=== PATIENT | male | born 1980 | race Caucasian/White ===

== ENCOUNTER 2016-10-31 18:32 | Inpatient (IN) | payer OTHER ==
[~2016-10-31] VITALS: Ht 185.4 cm; Wt 84.8 kg
[2016-10-31] VITALS (12 sets, daily range): BP systolic 100–118; BP diastolic 46–64; PULSE 118–158; RESP 18–34; O2SAT 93–97
[~2016-10-31 18:32] MED LIST: Vancomycin Inj 1,500 MG in 0.9% Sodium Chloride 500 ML IV ONE
[2016-10-31] MEDS ORDERED: 0.9% Sodium Chloride 1,000 ML IV ONE ×3 (18:44→20:20)
--- NOTE | 2016-10-31 18:47 | ED.REPORT ---
HPI-General Illness Date of Service Oct 31, 2016 ED Provider: Elise Ervin MD Patient is a 36 year old male with a history of IV drug use and COPD who presents to the ED complaining of chest pain onset after using heroin today. Associated symptoms include shortness of breath, palpitations, cough, chills and fever. He denies nausea, vomiting, throat swelling, voice changes or problems with any of his extremities. Patient states that someone else gave him the heroin. The patient reports that he uses IV meth and heroin daily for the past 6 months but has used both for the past year. Nursing Notes Stated Complaint: DRUG USE Chief Complaint: Substance Abuse Nursing Notes Reviewed: Yes Allergies: Uncoded Allergies: C-CHLOR (Allergy, Unknown, 10/31/16) No Active Prescriptions or Reported Meds General Time Seen by MD: 19:37 Chief Complaint Chest pain Hx Obtained From: Patient Arrived By: Walk-in Sudden in Onset?: Yes Onset Occurred: 1 - 4 hours ago Symptom Duration: Since onset Location: : Chest Quality: Heaviness Radiation: : Does not radiate Severity: Current: Moderate Associated with: Reports: Cough, Fever, Shortness of breath, Denies: Nausea, Speech abnormal, Vomiting Recent Healthcare: No recent hospitalization Similar Sx Previous: No Past Medical History Past Medical History Reports: COPD Smoking History Current Every Day Smoker Social History Drug Use: IV drugs, Meth Ambulatory Status Independent Review of Systems Full Review of Systems Constitutional: Reports: Chills, Fever Ears / Nose / Throat: Denies: Throat swelling, Voice change Respiratory: Reports: Non-productive cough, Shortness of breath Cardiovascular: Reports: Chest pain, Palpitations GI: Denies: Nausea, Vomiting Musculoskeletal: Denies: Extremity pain Neurologic: Denies: Numbness, Weakness Complete sys rev & neg: except as marked. Physical Exam Vital Signs Vital Signs Date Time Temp Pulse Resp B/P Pulse Ox O2 Delivery O2 Flow Rate FiO2 10/31/16 20:54 138 24 118/63 95 Room Air 10/31/16 20:25 39 142 26 115/54 95 Room Air 10/31/16 19:46 141 34 97 Room Air 10/31/16 19:43 148 20 113/53 94 Room Air 10/31/16 18:29 39.6 158 24 100/46 93 Room Air Initial VS: Reviewed, Vital signs abnormal General/Constitutional: Awake, Alert Head / Eyes: Atraumatic, Normocephalic, PERRL, EOMI ENT: Atraumatic, Airway patent, Mucous membranes moist Respiratory / Chest: Atraumatic, No respiratory distress Wheezing / Retractions: Positive: Wheeze insp/exp diffuse Cardiovascular: Regular rhythm, Heart sounds NL Heart Rate / Rhythm: Positive: Tachycardia Abdomen: Atraumatic, Soft Tenderness/Guarding/Rebound: Positive: Tender RLQ... Upper Extremities Upper Extremity / MS: Atraumatic, Inspection NL Lower Extremity / Pelvis / MS: Atraumatic, Inspection NL Skin: Atraumatic, Color NL, No rash, Warm, Dry Neurologic: Oriented X3, Speech NL, No motor deficits, No sensory deficits Psychiatric: Affect NL, Mood NL Interpretation & Diagnostics Lab Results Interpretation Result Diagram: 10/31/16185410/31/161854 Test 10/31/16 18:55 White Blood Count 4.2th/mm3 (3.8-10.1) Red Blood Count 4.53mil/mm3 (4.40-5.80) Hemoglobin 12.5g/dL (13.8-17.2) Hematocrit 37.9% (41.0-50.0) Mean Corpuscular Volume 83.7fL (81-100) Mean Corpuscular Hemoglobin 27.6pg (27.0-35.0) Mean Corpuscular Hemoglobin Concent 33.0% (32.0-37.0) Red Cell Distribution Width 13.2% (12.3-15.4) Platelet Count 253bil/L (150-400) Neutrophils (%) (Auto) 93.8% (40-74) Lymphocytes (%) (Auto) 4.3% (14-46) Monocytes (%) (Auto) 0.5% (4-12) Eosinophils (%) (Auto) 0.7% (0-5) Basophils (%) (Auto) 0.2% (0-3) Erythrocyte Sedimentation Rate 22mm/hr (0-15) Prothrombin Time 12.7sec (8.1-12.5) Prothromb Time International Ratio 1.18ratio Sodium Level 138mEq/L (134-144) Potassium Level 3.9mEq/L (3.5-5.2) Chloride Level 103mEq/L (97-108) Carbon Dioxide Level 20mmol/L (18-29) Blood Urea Nitrogen 17mg/dL (6-20) Creatinine 1.09mg/dL (0.76-1.27) Estimat Glomerular Filtration Rate 80mL/min (>59) Glucose Level 131mg/dL (60-99) Calcium Level 8.7mg/dL (8.5-10.1) Phosphorus Level 1.2mg/dL (2.5-4.9) Magnesium Level 1.4mg/dL (1.6-2.6) Total Bilirubin 0.9mg/dL (0.0-1.2) Aspartate Amino Transf (AST/SGOT) 248U/L (0-50) Alanine Aminotransferase (ALT/SGPT) 100U/L (0-44) Alkaline Phosphatase 126U/L (25-150) Troponin T < 0.010ug/L (0.0-0.011) Total Protein 6.7g/dL (6.4-8.4) Albumin 3.1g/dL (3.4-5.0) Lipase 30U/L (13-60) Procalcitonin 25.61ng/mL (0.00-0.08) ECG Interpretation ECG Interpretation: sinus tachycardia, rate 151 nonspecific T abnormalities, inferior leads Time: 18:42 Interpreted by: ED physician X-Ray Chest Interpretation Chest Xray Interpretation: IMPRESSION: No acute cardiopulmonary findings. Dictated by: Sophia Rutherford M.D. on 10/31/2016 at 19:12 Approved by: Sophia Rutherford M.D. on 10/31/2016 at 19:13 View: Portable, 1 view Interpretation / Wet Read by: Interpret - Radiologist Re-Eval/Medical Decision Med Decision/Clinical Course The patient presents with high fever and tachycardia after injection of drugs, he is an IV drug user. He also complained of having some chest tightness and has a history of COPD and asthma. He is not having any other obvious sources of infection but given his history of IV drug abuse his at risk for endocarditis and bacteremia with sepsis. He was given vancomycin and ceftriaxone. His heart rate did slightly improve on the emergency department. Patient is also given a dose of Ativan due to his history of methamphetamine use it was felt his tachycardia may be related to amphetamine. Time of Eval: 20:18 Re-Evaluation/Progress Note: Discussed plan for admit. Patient understands and agrees to plan. All questions were addressed. Consultation : Referral / Consult Name: David Small MD Consulted With: Hospitalist Call Returned at: 20:35 Usps Letter Carrier: Agrees with eval, Agrees with plan, Accepts admit Counseled Regarding: Diagnosis, Lab results, Need for admission Discharge & Departure Primary Impression: SIRS (systemic inflammatory response syndrome) Additional Impression: Heroin use Disposition: ADMITTED TO HOSPITAL Discharge Condition All VS Reviewed: Yes Condition: Stable Scribe Attestation Portions of this note were transcribed by Lizzie Rivera. I, Dr. Ervin personally performed the history, physical exam and medical decision-making; I reviewed and confirmed the accuracy of the information in the transcribed note. Signed by: Bev Woo, 10/31/16 and 1944 Elise Ervin MD Oct 31, 2016 18:47 Irina Rivera Oct 31, 2016 19:44 Urine Nitrite Negative (NEGATIVE) Urine Bilirubin Negative (NEGATIVE) Urine Urobilinogen Normalmg/dL (NORMAL) Urine Leukocyte Esterase Negative (NEGATIVE) Urine RBC 0-2/hpf (0-2) Urine WBC 0-5/hpf (0-5) Urine Epithelial Cells Few/hpf (NONE-MOD) Urine Crystals None seen (NONE SEEN) Urine Bacteria Few/hpf (NONE-FEW) Urine Hyaline Casts None/lpf (NONE) Urine Granular Casts None seen (NONE SEEN) Urine Waxy Casts None seen (NONE SEEN) Urine Red Blood Cell Casts None seen (NONE SEEN) Urine White Blood Cell Casts None seen (NONE SEEN) Urine Mucus None seen (None Seen) Urine Trichomonas None seen (NONE SEEN) Urine Yeast None (NONE SEEN) Urinalysis Comment None Urine Culture Reflexed Not indicated ECG Interpretation ECG Interpretation: sinus tachycardia, rate 151 nonspecific T abnormalities, inferior leads Time: 18:42 Interpreted by: ED physician X-Ray Chest Interpretation Chest Xray Interpretation: IMPRESSION: No acute cardiopulmonary findings. Dictated by: Sophia Rutherford M.D. on 10/31/2016 at 19:12 Approved by: Sophia Rutherford M.D. on 10/31/2016 at 19:13 View: Portable, 1 view Interpretation / Wet Read by: Interpret - Radiologist Re-Eval/Medical Decision Time of Eval: 20:18 Re-Evaluation/Progress Note: Discussed plan for admit. Patient understands and agrees to plan. All questions were addressed. Consultation : Referral / Consult Name: David Small MD Consulted With: Hospitalist Call Returned at: 20:35 Usps Letter Carrier: Agrees with eval, Agrees with plan, Accepts admit Counseled Regarding: Diagnosis, Lab results, Need for admission Discharge & Departure Primary Impression: SIRS (systemic inflammatory response syndrome) Additional Impression: Heroin use Disposition: ADMITTED TO HOSPITAL Discharge Condition All VS Reviewed: Yes Condition: Stable Scribe Attestation Portions of this note were transcribed by Lizzie Rivera. I, Dr. Ervin personally performed the history, physical exam and medical decision-making; I reviewed and confirmed the accuracy of the information in the transcribed note. Signed by: Bev Woo, 10/31/16 and 1946 Elise Ervin MD Oct 31, 2016 18:47 Irina Rivera Oct 31, 2016 19:44 Irina Rivera Oct 31, 2016 19:44
[2016-10-31 19:11] LABS: BASOPHILS % (AUTO) 0.2 % (0-3); EOSINOPHILS % (AUTO) 0.7 % (0-5); MONOCYTES % (AUTO) 0.5 % (4-12); Mean Corpuscular Hemoglobin 27.6 pg (27.0-35.0); Mean Corpuscular Volume 83.7 fL (81-100); NEUTROPHILS % (AUTO) 93.8 % (40-74); Platelet Count 253 bil/L (150-400)
--- NOTE | 2016-10-31 19:14 | DRSVH ---
PROCEDURE: X-RAY CHEST ONE VIEW, PORTABLE ([id number]) INDICATIONS: tachycardia TECHNIQUE: One view of the chest was acquired. COMPARISON: None. FINDINGS: Surgical changes and devices: None. Lungs and pleura: No pleural effusions or pneumothorax. Lungs are clear. Mediastinum: Mediastinal contours appear normal. Heart size is normal. Bones and chest wall: No suspicious bony lesions. Overlying soft tissues appear unremarkable. IMPRESSION: No acute cardiopulmonary findings. Dictated by: Sophia Rutherford M.D. on 10/31/2016 at 19:12 Approved by: Sophia Rutherford M.D. on 10/31/2016 at 19:13
[2016-10-31 19:24] LABS: ERYTHROCYTE SEDIMENTATION RATE 22 mm/hr (0-15)
[2016-10-31 19:28] LABS: INR 1.18 ratio
[2016-10-31 19:38] LABS: TROPONIN T < 0.010 ug/L (0.0-0.011)
[2016-10-31] MEDS ORDERED: Albuterol-Ipratropium 3 mL Inhalation Solution NEB ONE (19:40)
[2016-10-31] MEDS ORDERED: Vancomycin Dose per Pharmacist XX ONE ×2 (19:45→21:30)
[2016-10-31] MEDS ORDERED: cefTRIAXone Inj 2,000 MG in Dextrose 5% Minibag Plus 50 ML IV ONE (19:45)
[2016-10-31] MEDS ORDERED: Vancomycin Inj 1,750 MG in 0.9% Sodium Chloride 500 ML IV ONE (19:55)
[2016-10-31 19:58] LABS: Magnesium 1.4 mg/dL (1.6-2.6)
[2016-10-31 19:58] LABS: APPEARANCE,URINE CLEAR (CLEAR,HAZY); COLOR,URINE YELLOW (YELLOW); OCCULT BLOOD,URINE NEGATIVE (NEGATIVE); UROBILINOGEN,URINE NORMAL (NORMAL)
[2016-10-31] MEDS ORDERED: Magnesium Sulf 2 Gm/50mL Water 2 GM in IV Premix 1 EACH IV ONE (20:15)
[2016-10-31] MEDS ORDERED: D5 0.45% NaCl + KCl 20 mEq/L 1,000 ML IV SCH (21:15)
[2016-10-31] MEDS ORDERED: Albuterol 2.5 mg/3 mL Inhalation Solution NEB PRN (21:15)
[2016-10-31] MEDS ORDERED: Ketorolac 15 mg/mL Inj IVPUSH ONE (21:15)
[2016-10-31] MEDS ORDERED: Alum-Mag Hydrox-Simeth 30 mL Suspension PO PRN ×2 (21:15→21:30)
[2016-10-31] MEDS ORDERED: Ondansetron 2 mg/mL 2 mL Inj IVPUSH PRN ×2 (21:15→21:30)
[2016-10-31] MEDS ORDERED: Polyethylene Glycol (PEG) 17 Gm Powder PO PRN (21:30)
--- NOTE | 2016-10-31 21:32 | PCM.HPMED ---
Subjective Date of Service Oct 31, 2016 Primary Provider: Admitting Physician: David Small MD Primary Care Physician: Nopcp Attending Physician: David Small MD Admit Status: PCC Telemetry Chief Complaint: Shortness of breath History of Present Illness: Jose Alejandro Richards is a 36-year-old man with polysubstance abuse who presents to the ED complaining of shortness of breath that started after he injected methamphetamine and heroin into his right arm this morning. Patient notes that he has felt short of breath and has had a productive cough for the past 6 months that has progressively worsened. The reason for his presentation today is that his shortness of breath is accompanied with sensation of his heart racing along with fever and sweats. Patient thought this may be due to withdrawing and took an additional hit of heroin just prior to arrival at approximately 1600. Patient has been using heroin and methamphetamine for the past year. He states he only injects in his arms bilaterally. He has not noticed any swelling or erythema surrounding the injection sites. He states he does not share needles but he does lick his needles. He denies any other rash or skin findings. Prior to this he struggled with alcohol abuse but has been sober for approximately one year. He also uses marijuana through inhalation route occasionally. He denies any sick contacts. He denies TB, hepatitis C, or HIV and states he was tested when he was at a rehabilitation center over a year ago. He was tested more recently for TB when he was incarcerated approximately 6 months ago. He denies any nausea, vomiting, diarrhea, abdominal pain, constipation, headache, visual changes, dizziness, or lightheadedness. On presentation to the ED vitals were temperature 39.6, pulse 158, respiratory rate 24 saturating 93% on room air, blood pressure 100/46. Initial labs revealed WBC of 4.2 with 93.8% neutrophils, ESR 22, lactic acid 2.8, AST 248, ALT 100, pro-calcitonin 25.61, and negative troponin. In the emergency department patient received vancomycin and ceftriaxone for suspected bacteremia. Review of Systems: Comprehensive review of systems was conducted with the patient and found to be negative except as noted above in HPI. Allergies Uncoded Allergies: C-CHLOR (Allergy, Unknown, 10/31/16) Home Medications None PMH Rheumatoid arthritis previously on Remicade but no current treatment Surgical History None Family History Father - skin cancer Mother - diabetes mellitus, stroke Sister - ovarian cancer Social History Hx Alcohol Use: Yes (former alcoholic sober for approximately one year) Hx Substance Use: Yes (heroin, methamphetamine, marijuana) Hx Tobacco Use: Yes Smoking Status: Current Every Day Smoker Years of Smokin Living Arrangement: with Friends/Roommate Exam Vital Signs Vital Sign - Last Date Time Temp Pulse Resp B/P Pulse Ox O2 Delivery O2 Flow Rate FiO2 10/31/16 21:19 130 26 114/64 96 Room Air 10/31/16 20:25 39 Exam General: No acute distress, well-developed, well-nourished, appropriately interactive. Diffuse sunburn on exposed skin area. HEENT: Normocephalic, atraumatic. External ears without defect. Pupils equal, round, and reactive to light and accommodation. Anicteric sclerae. Oropharynx free of erythema and cobble stoning with moist mucosa. Dentition in fairly good repair. Neck: Supple with full range of motion. No jugular venous distension. No bruits. No lymphadenopathy or thyromegaly. Cardiovascular: Tachycardic but regular rhythm with no murmurs, rubs, or gallops appreciated Pulmonary: Diffuse wheezes throughout lung shelley. Normal respiratory effort with no use of accessory muscles. Abdomen: Bowel tones present. Soft, nontender, nondistended. No hepatosplenomegaly or masses appreciated. Extremities: No clubbing, cyanosis, edema, or lymphadenopathy appreciated. Faint track alba on bilateral arms. Skin: Normal temperature, turgor, and texture; no rash, ulcers, or subcutaneous nodules appreciated. Neurological: Cranial nerves grossly intact. Normal muscle strength, tone, and bulk. Reflexes, coordination, and sensory function within normal limits. No known gait impairment. Psychiatric: Normal mood and affect. Alert and oriented to person, place, and time. Lab and Diagnostics Result Diagram: 10/31/16185410/31/161854 Microbiology Blood cultures 4 drawn and sent. X-Rays, CTs and MRIs X-RAY CHEST ONE VIEW, PORTABLE ([id number]) IMPRESSION: No acute cardiopulmonary findings. Dictated by: Sophia Rutherford M.D. on 10/31/2016 at 19:12 Approved by: Sophia Rutherford M.D. on 10/31/2016 at 19:13 Assessment & Plan Jose Alejandro Richards is a 36-year-old man with polysubstance abuse who presents to the ED complaining of shortness of breath that started after he injected methamphetamine and heroin into his right arm this morning. Admitted for sepsis thought to be secondary to bacteremia. Sepsis, present on admission, active. Diagnostic criteria include temperature 39.6, respiratory rate 24, pulse 158, lactate 2.8. Blood is suspected source of infection although not proven at this time. - Lactate has trended down with IV fluids to 1.2. - IV fluids at 125 ml/hr. - Blood cultures 4 drawn and sent. - Empiric antibiotics include vancomycin and ceftriaxone given in the ED. Ceftriaxone switched to Zosyn. - MRSA screen ordered. - Pro calcitonin elevated at 25.61. Polysubstance abuse, present on admission, active. Last heroin injection at approximately 1600 on 10/31/16. Last methamphetamine injection morning of 10/31/16. - No current signs of withdrawal we will continue to monitor. - Patient would like to be started on Suboxone once he begins withdrawing. - Monitor on telemetry. - Due to IV drug use and suspicion of bacteremia and/or endocarditis we will order an echocardiogram for the morning. Elevated aminotransferases, present on admission, active. No prior diagnosis of hepatitis or HIV. Patient denies recent alcohol use but was an alcoholic in the past. - AST 248 and ALT 100 on admission. - Hepatitis panel and HIV ordered. Tachycardia, present on admission, active. Etiology likely secondary to sepsis. - IV fluids given as above. - EKG interpretation was sinus tachycardia with a rate of 151 and nonspecific T wave abnormalities. - Repeat EKG in the morning or sooner if patient develops chest pain. - Monitor on telemetry. - Echocardiogram ordered for morning. - Consider further medical management if treatment of sepsis does not improve rate. Electrolyte derangements, present on admission, active. - Magnesium 1.4 and phosphorus 1.2. - Potassium phosphate and magnesium given. - Repeat magnesium and phosphorus levels in the morning. Tobacco use disorder, presents on admission, active. - Nicotine patch 21 mg daily. PRN Medications - Acetaminophen as needed for mild pain/fever/headache - Bowel regimen as needed - Antiemetic as needed Patient is admitted under inpatient status with expected length of stay greater than 2 midnights due to severity of presenting symptoms, risk of adverse event, and complexity of treatment plan. Pain Evaluation: Adequate Pain Control GI Prophylaxis: Not indicated VTE Prophylaxis: Sub-Q Heparin (Unfractionated), SCDs Resuscitation Status: CPR: Attempt Resuscitation KAREN MARR DO Oct 31, 2016 21:32
[2016-10-31] MEDS ORDERED: Piperacillin-Tazo 3.375 Gm Inj 3.375 GM in Dextrose 5% Minibag Plus 50 ML IV ONE (21:45)
[2016-10-31 21:53] LABS: Phosphorus 1.2 mg/dL (2.5-4.9)
[2016-10-31 22:14] LABS: APPEARANCE,URINE CLEAR (CLEAR,HAZY); COLOR,URINE YELLOW (YELLOW)
[2016-10-31 22:15] LABS: OCCULT BLOOD,URINE NEGATIVE (NEGATIVE); UROBILINOGEN,URINE NORMAL (NORMAL)
--- NOTE | 2016-10-31 22:15 | NUR ---
Admission: Pt arrived to room 2006 at 2127 in stable condition. Pt placed on telemetry and noted to be in ST in the 130s. Initial assessment completed as charted. MD at the bedside and reviewed POC; starting IV fluids and antibiotics. Will cont. to closely monitor. Bed in the low position and locked. Call light within reach. Pt drowsy, but answering appropriately and following commands.
--- NOTE | 2016-10-31 22:17 | PCM.PHAPRO ---
Progress Date of Service: Oct 31, 2016 Chest pain Vancomycin Management per Pharmacy: Indication: Chest pain/fever/sepsis in patient with history of IV drug use ( heroine and methamphetamine) - rule out endocarditis/septic emboli Goal Vancomycin trough: 15-20 mcg/dL Age: 36 yo Weight: 90 kg Labs: WBC: 4.2 SrCr: 1.09 mg/dL Procalcitonin: 25.61 ESR: 72 Lactic Acid: 2.8 AST/ALT: Elevated 2x above baseline Vitals: HR: 130-150s BPM (dramatically elevated) Temp: 39.6 BP: Maintaining BP currently RR: 20-34 (elevated) Nephrotoxic Risk Factors: Zosyn IV Recommendation: Load: Vancomycin 1750 mg IV x 1 loading dose (20 mg/kg) Maintenance: Will give additional 1500 mg IV vancomycin 6 hrs post initial load , then start maintenance dose at 1250 mg IV Q8h again 6 hrs later (Pt will need higher doses because SIRS increases volume of distribution and history of meth along w/ SIRS response is resulting in elevated heart rate and enhanced clearance of vancomycin. Trough: Draw on 11/02/16 @ 0730 Will need to monitor renal function and vitals carefully and adjust vancomycin dose accordingly. If SrCr trends up or pt becomes hypotensive (resulting in hypoperfusion to kidney) will need to decrease dose and draw trough sooner. Thank You, Beatriz Garrett, Pharm D. Beatriz Garrett Oct 31, 2016 22:17
[2016-10-31] MEDS ORDERED: Potassium Phos (mMol) Inj 15 MMOL in Dextrose 5% 250 ML IV ONE (22:25)
[2016-10-31] MEDS: 0.9% Sodium Chloride 1,000 ML IV SCH (22:27)
[2016-10-31] MEDS: Sodium Chloride LOK Flush 10 mL Syringe IVFLUSH SCH (23:34)
[2016-10-31] MEDS: Vancomycin Dose per Pharmacist XX SCH (23:34)
[2016-11-01] VITALS (11 sets, daily range): BP systolic 103–134; BP diastolic 55–79; PULSE 93–110; RESP 18–20; O2SAT 96–100
[2016-11-01] MEDS: Heparin 5,000 Unit/mL Inj SUBQ SCH ×3 (00:37→17:20)
[2016-11-01] MEDS ORDERED: Piperacillin-Tazo 3.375 Gm Inj 3.375 GM in Dextrose 5% Minibag Plus 50 ML IV SCH ×2 (02:00→06:30)
[2016-11-01] MEDS ORDERED: Albuterol-Ipratropium 3 mL Inhalation Solution NEB SCH (02:30)
[2016-11-01 02:52] LABS: BASOPHILS % (AUTO) 0.1 % (0-3); EOSINOPHILS % (AUTO) 0.1 % (0-5); Mean Corpuscular Hemoglobin 27.3 pg (27.0-35.0); Mean Corpuscular Volume 83.7 fL (81-100); NEUTROPHILS % (AUTO) 89.4 % (40-74); Platelet Count 231 bil/L (150-400)
[2016-11-01 03:21] LABS: Magnesium 1.9 mg/dL (1.6-2.6)
[2016-11-01] MEDS: 0.9% Sodium Chloride 1,000 ML IV SCH ×3 (07:52→21:45)
[2016-11-01] MEDS: Vancomycin Inj 1,250 MG in 0.9% Sodium Chloride 250 ML IV SCH ×2 (07:53→17:18)
[2016-11-01] MEDS: Sodium Chloride LOK Flush 10 mL Syringe IVFLUSH SCH ×2 (07:58→17:22)
[2016-11-01] MEDS: Vancomycin Dose per Pharmacist XX SCH (08:00)
[2016-11-01] MEDS: Albuterol-Ipratropium 3 mL Inhalation Solution NEB PRN ×2 (09:44→15:33)
--- NOTE | 2016-11-01 11:02 | CONS ---
[address] [address] CONSULTATION REPORT PATIENT: MICHELE WONG : 1980 MR#: [id number] ADMIT: 10/31/2016 JOB ID: [id number] DATE OF SERVICE: 11/01/2016 INFECTIOUS DISEASE CONSULTATION: I thank Dr. Hewitt for this timely consult. REASON FOR CONSULTATION: Sepsis in an IV drug user. HISTORY OF PRESENT ILLNESS: The patient is a 36-year-old gentleman with a past history of rheumatoid arthritis as well as alcoholism in remission and IV drug use which is not in remission. He is also a cigarette smoker and has a possible history of asthma. He uses very nonsterile technique when he injects drugs and often licks the needles and uses old cotton swabs as part of his "works." He injects both meth and heroin. He is also, as mentioned, a cigarette smoker. He was in his usual state of compensated health until yesterday when he developed the abrupt onset of profound shortness of breath with almost complete inability to draw a full breath as well as a rapid pulse which he and his girlfriend appreciated and fever and sweats without chills. All these symptoms, but especially the respiratory symptoms, led him to the emergency department where he was admitted last night. It was discovered last night in the emergency department as part of his initial evaluation that he had an elevated CRP as well as a tremendously increased procalcitonin consistent with sepsis. His initial white count was only 5, but it has since jumped to 16. He was admitted for suspicion of a pulmonary infection and/or sepsis with possible endocarditis or bacteremia due to nonsterile IV injections. Overnight, the patient reports there has been some improvement in his respiratory status and he can now move more air and his chest feels less tight. He does not have any significant cough and certainly no productive cough or pleuritic chest pain. He now hears some wheezing, which he states he has had in the past but did not have yesterday because he could not move any air at all. His fevers and chills are better overnight. He continues to have quite a significant headache, which has been part of this illness throughout but no sore throat. As mentioned no productive cough and no longer any chest tightness or pain. He does have some mild right upper quadrant tenderness and fullness which seems like it may be chronic though it is difficult to tell in terms of his history. Other striking part of his history was that he had trouble voiding, and in fact at one point, was unable to make any urine whatsoever but that seems to have resolved overnight with hydration and he has no prior history of urinary tract infections. PAST MEDICAL HISTORY: 1. Rheumatoid arthritis which he has not been treated for for about a decade. 2. History of IV drug use. 3. History of alcoholism in remission x1 year. 4. History of cigarette smoking. 5. History of prior incarcerations. SOCIAL HISTORY: As noted the patient is an alcoholic and has been in remission for a year. He is not in remission with respect to his IV heroin and amphetamine use, using non sterile technique. He is also a cigarette smoker. He lives in a variety of locations with his significant other, currently between [facility] and [facility]. His last admission to the hospital he says was about five or six years ago at one of the hospitals in [place] for what was termed a pneumonia. FAMILY HISTORY: No history of TB in first or second-degree relatives. The patient has been testing himself for TB in the past and it has been negative. He does have a family history of diabetes not surprisingly. REVIEW OF SYSTEMS: The patient has quite a severe headache. No new visual complaints. No sore throat. No stiff neck. He did have chest tightness and trouble breathing yesterday. Today he has wheezing but less tightness. No significant cough. No pleuritic chest pain. No palpitations though yesterday he had a very rapid heart rate which has subsided overnight. Some mild right upper quadrant fullness or tenderness perhaps without nausea or vomiting. No diarrhea. He had painful urination yesterday and eventually no urine output but that has resolved, suggesting it was all due to severe dehydration. No particular pain in any single joint or muscle though he did have some diffuse malaise yesterday. No skin rash has been noted. He does not have any pain or infection that is apparent to him at least at the site of any recent injection. Remainder of the review of systems negative. PHYSICAL EXAMINATION: Reveals an afebrile gentleman, 36.3 temperature, pulse 100, respiratory rate 20, blood pressure 103/55, saturating 100% on room air. He is in no obvious distress as he lies in his hospital bed. He is awake, alert and oriented. No head trauma. Eyes without conjunctivitis or scleral icterus. Nose appears normal. Oral cavity without thrush or hairy leukoplakia. No pharyngitis is seen. His neck is completely supple without JVD or adenopathy. Lungs with scattered wheezes bilaterally, right more than left. No pleural rub is heard and no real rales are heard either. Cardiac tones: Tachycardic but without murmur. There was a noisy room so a bit difficult to appreciate subtle murmurs but no gross murmur or rub was heard. Abdomen with a liver that extends 3 cm below the right costal margin and is quite tender especially along the mid portion. The left upper quadrant is quiet. There is no splenomegaly. There are no other notable abnormalities. The lower abdomen is benign. The patient does not have suprapubic tenderness. There is no evidence for synovitis anywhere and no significant peripheral edema. No cellulitis is seen. No abscess at injection sites as noted. His hands do not have synovitis or changes classically consistent with chronic rheumatoid arthritis. No palmar erythema seen. No spider angiomata are seen. Neurologically he is intact. The labs include a white count yesterday 4200 with left shift. This morning 15.5 with left shift. Sed rate only 22. Creatinine 1.13. LFTs: AST 183, ALT 123. CRP is 5.8, albumin 2.8. Procalcitonin an impressive 124, yesterday it was 26. Serologic studies include pending hepatitis panel including hep C and also an HIV is pending. Urinalysis without white cells. IMAGING: Includes a chest x-ray, which we reviewed and showed no infiltrate. IMPRESSION: This is a 36-year-old IV drug user with a history of rheumatoid arthritis in remission as well as alcoholism in remission. He was admitted with shortness of breath which is likely on the basis of asthma given his wheezing and clear chest radiograph. The bigger issue here is his white count which has quadrupled overnight and his procalcitonin which has reached almost astronomical levels. This strongly suggests a systemic bacterial infection and given the fact he does not have pneumonia strongly suggest bacteremia or endocarditis. The other major concern I have here though is his right upper quadrant fullness and tenderness. This could represent conceivably a liver abscess or acute cholecystitis and I think those possibilities need to be evaluated. He has grossly elevated LFTs which I suspect are chronic and reflect underlying hepatitis B or hepatitis C or both. It is also important that we get some baseline data on this patient including a HIV which has been ordered. RECOMMENDATIONS: 1. I discussed this case this morning with the house staff. Given the concerns that he has endocarditis, he needs three sets of blood cultures, not two, and I think an additional third set of blood cultures has been drawn. 2. Even though a MRSA screen of the nares is negative initially, I think we should go ahead and persists with vanc and perhaps ceftriaxone while we await additional information. 3. Right upper quadrant ultrasound should be done to evaluate his liver parenchyma as well as his gallbladder. 4. Will continue to follow this complex patient with you. Should he have positive blood cultures, he will require a transthoracic echo and depending on what the organism is perhaps a transesophageal. My initial guess is that the patient does not have endocarditis because of the sudden onset of these symptoms and I suspect more likely had a transient bacteremia due to terrifically contaminated intravenous injection secondary to needle licking and the use of nonsterile reused cotton balls to prepare the needles for injection. Thank you very much for this scintillating consult. MATI
--- NOTE | 2016-11-01 12:40 | DRSVH ---
[facility] [address] [place] [address] Echocardiogram Report Name: MICHELE WONG Study Date: 11/01/2016 Height: 72 in Hospital Exam Location: [facility] Weight: 199 lb Gender: Male BSA: 2.1 m2 : 1980 Age: 36 yrs BP: 104/66 mmHg Reason For Study: Concern for Endocarditis Performed By: Cheryl Pedro Referring Physician: KAREN MARR Interpretation Summary The study quality was technically difficult. The left ventricle is normal in size. The ejection fraction is estimated to be 60-65%.There appears to be mild hypokinesis of distal posterolateral wall. Paradoxical septal motion noted. The right ventricle is mildly dilated. The right ventricular systolic function is normal. The right ventricular systolic pressure is estimated at 40 mmHg assuming a right atrial pressure of 15 mm Hg. The IVC is dilated (diameter is greater than 2.1 cm) and it collapses less than 50% with a sniff. This suggests a high right atrial pressure of 15 mm Hg. No obvious vegetation seen, however if clinical suspicion for endocarditis is high, consider TAMMIE. Procedure: A two-dimensional transthoracic echocardiogram with color flow and Doppler was performed. The study quality was technically difficult. There is no prior echocardiogram noted for this patient. A contrast injection of Definity was performed to improve assessment of LV function. The patient was in sinus tachycardia with heart rates between 93-108 bpm during the exam. Left Ventricle: The left ventricle is normal in size. There is normal left ventricular wall thickness. The ejection fraction is estimated to be 60-65%. There appears to be mild hypokinesis of distal posterolateral wall. Paradoxical septal motion noted. Diastolic function could not be accurately assessed due to tachycardia. Right Ventricle: The right ventricle is mildly dilated. The right ventricular systolic function is normal. Atria: The left atrial size is normal. Right atrial size is normal. The interatrial septum is intact with no evidence for an atrial septal defect. Mitral Valve: The mitral valve leaflets appear mildly thickened, but open well. The mitral valve leaflets are slightly calcified. There is trace mitral regurgitation. Aortic Valve: The aortic valve is not well visualized. There is discrete nodular thickening of the right coronary cusp. There is no aortic valve stenosis. No aortic regurgitation is present. Tricuspid Valve: The tricuspid valve is normal in structure and function. There is trace tricuspid regurgitation. The right ventricular systolic pressure is estimated at 40 mmHg assuming a right atrial pressure of 15 mm Hg. Pulmonic Valve: The pulmonic valve is not well visualized. There is trace pulmonic regurgitation. Great Vessels: The aortic root is normal size. The ascending aorta could not be visualized. The IVC is dilated (diameter is greater than 2.1 cm) and it collapses less than 50% with a sniff. This suggests a high right atrial pressure of 15 mm Hg. Pericardium/ Pleura There is no pericardial effusion. There is an anterior echo-free space consistent with a fat pad. There is no pleural effusion. MMode/2D Measurements & Calculations LVIDd: 5.6 cm RA long axis LVOT diam LVIDs: 4.0 cm LA A2 area: 13.5 cm : 2.4 cm FS: 29.3 % LA A4 area: 18.6 cm RA area IVSd: 0.89 cm LA length (vol): 4.5 cm LVPWd: 0.98 cm LA vol: 47.6 ml : 12.4 cm RA vol: 34.4 ml LA vol index: 22.4 ml/m RA IVC diam: 2.3 cm : 16.2 mm2 LV mcintyre. diameter/BSA LV sys. diameter/BSA TAPSE: 3.0 cm (cm/m^2): 2.6 (cm/m^2): 1.9 Doppler Measurements & Calculations Ao V2 max Med Peak E' Juan TR max juan Ao V2 mean : 83.3 cm/sec : 293.2 cm/sec : 60.5 cm/sec Ao max PG Lat Peak E' Juan TR max P.4 mmHg Ao V2 VTI : 2.8 mmHg : 13.0 cm/sec PA V2 max: 68.7 cm/sec Ao mean PG PA mean P.0 mmHg KRISH(V,D) : 4.8 cm2 LVOT Max Juan : 88.9 cm/sec KRISH(I,D): 4.6 cm sev ratio LV V1 max PG PA V2 mean KRISH indexed to BSA : 48.2 cm/sec (cm^2/m^2): 2.1 LV V1 VTI PA pr(Accel) : 13.5 cm : 45.8 mmHg Reading Physician:CHAYA
--- NOTE | 2016-11-01 13:44 | DRSVH ---
PROCEDURE: US ABDOMEN, LIMITED ([id number]) INDICATIONS: Tender swollen liver TECHNIQUE: Real-time focused scanning was performed of the abdomen, with image documentation. COMPARISON: None. FINDINGS: Exam is limited to evaluation of the liver. Patient is not fasting therefore gallbladder no nvisualized. The liver measures 19.3 cm, mildly enlarged. Hepatic echotexture is mildly hyperechoic. No focal mass lesions seen. No free fluid. IMPRESSION: Borderline hepatomegaly and steatosis. Correlation with liver function test suggested. Dictated by: Leandro Tsang M.D. on 11/01/2016 at 13:40 Approved by: Leandro Tsang M.D. on 11/01/2016 at 13:42
--- NOTE | 2016-11-01 14:58 | PCM.PNMED ---
Subjective Date of Service Nov 01, 2016 Subjective Patient was admitted for suspicion of a pulmonary infection and/or sepsis with possible endocarditis or bacteremia due to nonsterile IV injections. No acute event overnight. Today, patient reports some improvement of his breathing and chest tightness. He still has a persistent cough, but it is not productive. He admits to headache and anxiety, which he attributes to possible withdrawal symptoms from the Heroins. He asks if we can give him Suboxone to help with his symptoms. Patient also admits to RUQ and epigastric pain, which he though would be due to the persistent cough. He denies any significant infection in the past. He admits to frequently lick his needles before injection. Exam Vital Signs Vital Sign - Last Date Time Temp Pulse Resp B/P Pulse Ox O2 Delivery O2 Flow Rate FiO2 11/01/16 10:24 101 11/01/16 09:44 18 97 Room Air 11/01/16 08:34 36.3 103/55 Intake and Output 10/31/16 10/31/16 11/01/16 Cumulative From/Thru 15:00 23:00 07:00 10/31/16 18:29 - 11/01/16 06:03 Intake Total 2518 ml 1523 ml 4041 ml Output Total 400 ml 400 ml Balance 2518 ml 1123 ml 3641 ml Intake Oral 0 ml 0 ml IV Total 2518 ml 1523 ml 4041 ml Output Urine Total 400 ml 400 ml # Bowel Movements 0 0 Exam General: Well-developed, well-nourished, appropriately interactive. Diffuse sunburn on exposed skin area. HEENT: Normocephalic, atraumatic. External ears without defect. Pupils equal, round, and reactive to light and accommodation. Anicteric sclerae. Oropharynx free of erythema and cobble stoning with moist mucosa. Neck: Supple with full range of motion. No jugular venous distension. No bruits. No lymphadenopathy or thyromegaly. Cardiovascular: Tachycardic but regular rhythm with no murmurs, rubs, or gallops appreciated Pulmonary: Mild rales and diffuse wheezes throughout lung shelley. Normal respiratory effort with no use of accessory muscles. Dry cough noted. Abdomen: Bowel tones present. Soft, nondistended. Moderate tenderness to palpation in RUQ. Hepatomegaly noted. No splenomegaly. Extremities: No clubbing, cyanosis, edema, or lymphadenopathy appreciated. Faint track alba on bilateral arms. Skin: Normal temperature, turgor, and texture; no rash, ulcers, or subcutaneous nodules appreciated. Neurological: Cranial nerves grossly intact. Normal muscle strength, tone, and bulk. Reflexes, coordination, and sensory function within normal limits. No known gait impairment. Psychiatric: Appears anxious. Alert and oriented to person, place, and time. IVs and Medications Medications Reviewed: Medications were reviewed in detail Lab and Diagnostics Result Diagram: 11/01/1623911/01/16239 Microbiology Blood cultures 4 drawn and sent. X-Rays, CTs and MRIs PROCEDURE: US ABDOMEN, LIMITED IMPRESSION: Borderline hepatomegaly and steatosis. Correlation with liver function test suggested. Dictated by: Leandro Tsang M.D. on 11/01/2016 at 13:40 X-RAY CHEST ONE VIEW, PORTABLE ([id number]) IMPRESSION: No acute cardiopulmonary findings. Dictated by: Sophia Rutherford M.D. on 10/31/2016 at 19:12 Approved by: Sophia Rutherford M.D. on 10/31/2016 at 19:13 Cardiac Echo Impressions Interpretation Summary The study quality was technically difficult. The left ventricle is normal in size. The ejection fraction is estimated to be 60-65%.There appears to be mild hypokinesis of distal posterolateral wall. Paradoxical septal motion noted. The right ventricle is mildly dilated. The right ventricular systolic function is normal. The right ventricular systolic pressure is estimated at 40 mmHg assuming a right atrial pressure of 15 mm Hg. The IVC is dilated (diameter is greater than 2.1 cm) and it collapses less than 50% with a sniff. This suggests a high right atrial pressure of 15 mm Hg. No obvious vegetation seen, however if clinical suspicion for endocarditis is high, consider TAMMIE. Assessment & Plan Jose Alejandro Richards is a 36-year-old man with polysubstance abuse who presents to the ED complaining of shortness of breath that started after he injected methamphetamine and heroin into his right arm this morning. Admitted for sepsis thought to be secondary to bacteremia. Sepsis, present on admission, active. Diagnostic criteria include temperature 39.6, respiratory rate 24, pulse 158, lactate 2.8. Source of infection is suspected due to transient bacteremia given the sudden onset of symptoms, but endocarditis is also a possibility. - Patient admits to needle licking the the use of nonsterile reused cotton balls to prepare the needles for injection. No needle sharing. - Lactate has trended down with IV fluids to 1.2 then trend up. Will continue trending lactic acid Q6H. - Pro calcitonin markedly elevated at 124. - Urine and CXR negative for infection. - MRSA screen negative. - IV fluids at 125 ml/hr. - 2 sets of Blood cultures was drawn last night. Addition set drawn today per Dr. Portillo's recommendation. - Empiric antibiotics include vancomycin and ceftriaxone given in the ED. Will continue with Vanco and Cefepime per ID. Appreciate Dr. Portillo's input. - Echo showed no obvious vegetation seen. However, given strong clinical suspicion for endocarditis, will do Echo tomorrow. Case discussed with Dr. Vega who kindly agreed to see the patient. - NPO after midnight. Polysubstance abuse, present on admission, active. Last heroin injection at approximately 1600 on 10/31/16. Last methamphetamine injection morning of 10/31/16. - No other current signs of withdrawal although patient appears anxious. - Patient would like to be started on Suboxone once he begins withdrawing. However, patient states that he will go back to the drugs once he gets out of the hospital and therefore is not a candidate for Suboxone. - Will follow clinically and add Ativan as needed for agitation. - Monitor on telemetry. Elevated aminotransferases, present on admission, active. No prior diagnosis of hepatitis or HIV. Patient denies recent alcohol use but was an alcoholic in the past. In remission for 2 years. - AST 248 and ALT 100 on admission. - Hepatomegaly noted on exam. - Hepatitis panel and HIV ordered. - Abdominal U/S showed borderline hepatomegaly and steatosis. Gallbladder not visualized. Tachycardia, present on admission, active. Etiology likely secondary to sepsis. - IV fluids given as above. - EKG interpretation was sinus tachycardia with a rate of 151 and nonspecific T wave abnormalities. - Repeat EKG if patient develops chest pain. - Monitor on telemetry. - Echocardiogram ordered for morning. - Consider further medical management if treatment of sepsis does not improve rate. Questionable history of COPD, possibly in exacerbation, active. Patient reports worsening SOB and cough with marti phlegm. - Continue DuoNeb PRN - Will consider starting Prednisone if his symptoms do not improve. Electrolyte derangements, present on admission, resolved. - Magnesium 1.4 and phosphorus 1.2. - Potassium phosphate and magnesium given. Tobacco use disorder, presents on admission, active. - Nicotine patch 21 mg daily. History of rheumatoid arthritis, presume stable. - Patient has not been treated for a decade. - Follow up as outpatient. - Patient does not have a PCP. PRN Medications - Acetaminophen as needed for mild pain/fever/headache - Bowel regimen as needed - Antiemetic as needed Patient is admitted under inpatient status with expected length of stay greater than 2 midnights due to severity of presenting symptoms, risk of adverse event, and complexity of treatment plan. Pain Evaluation: Adequate Pain Control GI Prophylaxis: Not indicated VTE Prophylaxis: Sub-Q Heparin (Unfractionated), SCDs Resuscitation Status: CPR: Attempt Resuscitation Meng Bermudez DO Nov 01, 2016 11:38
[2016-11-01] MEDS: LORazepam 1 mg Tablet PO PRN ×2 (15:11→19:43)
--- NOTE | 2016-11-01 15:30 | NUR ---
Social Work Note: Screen Note/Multidisciplinary Rounds Data& Assessment: Pt was discussed in AM rounds, per MD pt is not medically ready for discharge and may require IV abx. Jose Alejandro Richards is a 36 year old male admitted on 10/31/2016 for SIRS. Pt is listed as self pay and comes from [place]. Per ED summary notes, pt was positive for meth, opiates, oxy, amphetamines, and THC. No MD orders at this time. SW to continue to follow to r/o substance use assessment and IV abx if indicated pending MD orders. SW to continue to follow. Plan: Anticipated discharge home when medically ready. SW to continue to follow to r/o substance use assessment and IV abx if indicated pending MD orders. SW to continue to follow. RAQUEL Arthur
[2016-11-01] MEDS: Cefepime Inj 2,000 MG in Dextrose 5% Minibag Plus 100 ML IV SCH (17:21)
--- NOTE | 2016-11-01 19:10 | NUR ---
Status/BM/withdrawal/walked off unit Pt A&O. Answers questions appropriately. DOMINIQUE. Denies any numbness or tingling. Pleasant and cooperative. Girlfriend at the bedside. Ambulates independently in the room with no issues. Tele ST 100-110s. On RA, lungs decreased, coarse, and wheezy. CBGs 109 and 140. Pt had 2 loose stools this shift, one of them had blood in it. MD aware. Pt knows he is to have any further BM in the [facility] for a sample. C/o increasing anxiety and restlessness throughout day. Took APAP for headache. Took ativan for anxiety. Pt states he did not feel it at all but pt did appear calm and relaxed. Pt requested to go on a walk and was instructed to only go as far as a certain point to stay within tele range. Pt left tele range and went downstairs. RADIATOR CLEANER found him in the lobby and brought him back up. Education provided. A 2nd time pt went outside of tele range but was still on the 2nd floor. Education provided. Girlfriend has been in and out. Info relayed to night RN.
[2016-11-02] VITALS (17 sets, daily range): BP systolic 124–147; BP diastolic 76–93; PULSE 55–104; RESP 15–26; O2SAT 97–100
[2016-11-02] MEDS: Heparin 5,000 Unit/mL Inj SUBQ SCH ×3 (00:08→18:28)
[2016-11-02] MEDS: Cefepime Inj 2,000 MG in Dextrose 5% Minibag Plus 100 ML IV SCH ×3 (00:08→16:31)
[2016-11-02] MEDS: Sodium Chloride LOK Flush 10 mL Syringe IVFLUSH SCH ×3 (00:08→16:30)
[2016-11-02] MEDS: Vancomycin Inj 1,250 MG in 0.9% Sodium Chloride 250 ML IV SCH ×3 (00:08→16:31)
[2016-11-02] MEDS ORDERED: Acetaminophen IV 1,000 MG in IV Premix 1 EACH IV PRN (00:15)
--- NOTE | 2016-11-02 01:44 | NUR ---
Withdrawal Pt reports feeling extremely restless and agitated. Exhausted all ordered options on EMAR and called MD. New orders initially placed and did not help. During pts walk, he went outside of hospital with significant other. Pt was informed that it would not be tolerated if he did this again. MD notified again of pts symptoms and came to bedside to evaluate. Orders for melatonin and IV Tylenol received and implemented. Put currently in bed asleep. Care ongoing
[2016-11-02 04:10] LABS: Hepatitis A Antibody IgM Negative (Negative); Hepatitis B Core Antibody IgM Negative (Negative)
[2016-11-02] MEDS: 0.9% Sodium Chloride 1,000 ML IV SCH ×2 (06:27→13:29)
[2016-11-02] MEDS ORDERED: Vancomycin Serum Trough XX ONE (07:30)
[2016-11-02 07:49] LABS: BASOPHILS % (AUTO) 0.4 % (0-3); MONOCYTES % (AUTO) 5.1 % (4-12); Mean Corpuscular Hemoglobin 27.5 pg (27.0-35.0); Mean Corpuscular Volume 85.8 fL (81-100); NEUTROPHILS % (AUTO) 74.5 % (40-74); Platelet Count 206 bil/L (150-400)
[2016-11-02 08:20] LABS: Magnesium 2.1 mg/dL (1.6-2.6); Phosphorus 3.2 mg/dL (2.5-4.9)
[2016-11-02] MEDS: Vancomycin Dose per Pharmacist XX SCH (08:30)
--- NOTE | 2016-11-02 09:08 | PROG NOTE ---
[address] [address] PROGRESS NOTE PATIENT: MICHELE WONG : 1980 MR#: [id number] ADMIT: 10/31/2016 JOB ID: [id number] DATE: 11/02/2016 INFECTIOUS DISEASE FOLLOW UP NOTE: REASON FOR FOLLOWUP: Sepsis in a patient with intravenous drug use, source unknown. INTERVAL HISTORY: Overnight, the patient reports he started to feel considerably better. He still has some mild headache, but it is considerably improved and he thinks some of this is due to opiate withdrawal. No sore throat is noted. He notes that his shortness of breath and cough which were some of the primary symptoms he had when he came in have essentially resolved and he has been able to get up and walk around without either. He still has some mild right upper quadrant pain which he thinks is due to coughing but it is not present on the left side. No nausea or vomiting, but he has had some loose stools which again he attributes to heroin withdrawal. PHYSICAL EXAMINATION: The patient spiked a 39.7 during the night, currently 36.6, pulse 73, respiratory rate 20, and blood pressure 129/82. He is saturating well on room air. Physical examination reveals a much more comfortable gentleman though he does have facial flushing and he looks much improved overall. Mental status is completely clear. Oral cavity without pharyngitis. Lungs relatively clear bilaterally. No additional wheezing is noted. Cardiac tones: Regular rate and rhythm without murmur. Abdomen: Soft, but with mild tenderness and some fullness in the right upper quadrant. The examination of the skin reveals no peripheral stigmata of endocarditis or rash. LABORATORY STUDIES: White blood count down to 12,000. Left shift is much improved overnight. Creatinine 0.79. His ALT is 73, other LFTs normal. Procalcitonin down by half, now down to 67. Albumin is 3. Urinalysis had no white cells. Hep B, hep C, HIV serologies negative. Many blood cultures are negative. We are approaching the point of having too many blood cultures here as I think we now have 14 negative bottles. MRSA screen of the nares is negative. Sputum was poor quality and basically negative on the culture. Respiratory viral PCR negative. IMAGING: Includes a normal chest x-ray on admission. An abdominal ultrasound that I had ordered yesterday which showed borderline hepatomegaly, otherwise negative. IMPRESSION: This is a young IV drug user with history of rheumatoid arthritis who is admitted with a profound leukocytosis and a procalcitonin which rapidly increased to greater than 100. Our initial concern, of course, was that she might have endocarditis but we have many blood cultures which are negative and a transthoracic echo looks relatively normal. I note that the team is going ahead and obtaining additional blood cultures and a transesophageal echo, and while I cannot object to this approach, I think it is unlikely, at this point, he has endocarditis given all the negative blood cultures without any preceding oral antibiotics as an outpatient and negative transthoracic echo. The tenderness in his right upper quadrant is still somewhat worrisome and the ultrasound was done in a nonfasting state so the gallbladder could not be evaluated. RECOMMENDATIONS: 1. Will continue with our current antibiotics for the time being which include cefepime and vanco. 2. An ultrasound of the right upper quadrant with the patient fasting may be advisable here to evaluate for possible gallbladder disease. Alternatively, we could get a CT scan with oral and IV contrast to include the abdomen and pelvis to look for possible intra-abdominal or pelvic sources of this significant infection. 3. The patient is a nonsterile injection technique IV drug user. It is certainly possible that this all is a transient bacteremia arising from a bolus of bacteria directly injected into the vasculature. I am no longer as worried about the possibility of endocarditis though certainly a transesophageal echo or follow up blood culture findings could change this. 4. Will continue to closely follow with you. 5. Discussed in person with Dr. Hicks.
[2016-11-02] MEDS ORDERED: Lactated Ringer's 1,000 ML IV ONE (09:54)
--- NOTE | 2016-11-02 09:54 | PCM.HPANE ---
Patient Data Surgeon Admitting Provider:David Small MD Attending Provider:Neo Hicks MD Primary Care Physician:Nopjohana Other Provider: Reason for Visit SIRS Ht/WT & BMI Height (Feet): 6 Height (Inches): 1 Weight (Kilograms): 90.200 Body Mass Index 26.93 Allergies Uncoded Allergies: C-CHLOR (Allergy, Unknown, 10/31/16) Past Anesthesia History Anesthesia History: Denies:: Abnormal Airway, Anesthesia Reactions, Difficult Intubation Diabetes History Hx Diabetes?: No Current Bedside Blood Glucose: 140 MRSA MRSA: No Medications Hypertension Medication: No Home Meds Incl Beta Kwaku: No No Active Prescriptions or Reported Meds History History of ENT Problems?: No HEENT History: Denies:: Abnormal Airway Difficult Intubation Denture Type: None Teeth Condition: Within Normal Limits Hx of Heart Problems?: No Cardiovascular History: Denies:: Cardiac Surgery Chest Pain Congestive Heart Failure Edema Heart Murmur Hypertension Irregular Heartbeat Pacemaker Thrombophlebitis Hx of Respiratory Problem?: Yes Respiratory History: Positive for:: Asthma COPD Denies:: Chest Surgery Dyspnea Emphysema Hemoptysis Pneumonia Tuberculosis Hx Neurologic Problems?: No Hx of GI Problems?: No Hx of Problems?: No Male Hx: Denies:: Prostate Problems Hx Musculoskeletal Problems?: Yes Musculoskeletal History: Denies:: Joint Replacement Musculoskeletal Trauma Hx of Psycho/Social Problems?: No Psycho Social History: Denies:: Suicide Attempt Hx Surgeries?: Yes (R hand surgery) Hx Any Other Health Problems?: Yes Other History: Positive for:: Hospitalization Denies:: Cancer Thyroid Disease History Blood Transfusions: Positive for:: Accept Blood Products? 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) Alcoholic Drinks Per Day: 2.5 years ago was the pt's last drinkHx Substance Use : Yes (heroin, methamphetamine, marijuana) Smoking Status: Current Every Day Smoker Have You Smoked inLast 12 mo: YesApprox How Many Cigarettes/day: 1 pack per day Stop/Bang Treated for Sleep Apnea?: No Do You Have a CPAP Machine?: No S-Snoring: Do You Snore Loudly: No T-Tired: feel tired, fatigued: No O-Obsered: Observed not breath: No P-Blood Pressure: treated: No B- Body Mass Index > 35 kg/m2: No A- Age over 50: No N- Neck Large Circumference: No G- Gender Male: Yes HORTENCIA Total Score: 1 HORTENCIA Risk Assessment: Low Risk, <3 Yes HORTENCIA Category 4 OutPt Procedure: Yes Risk Assessment Category Category 1A: Patient has history of documented sleep apnea, and HAS NOT received any narcotic, sedative or anesthesia administration during this stay. Category 1B: Patient has history of documented sleep apnea, and HAS received any narcotic , sedative or anesthesia administration during this stay Category 2: Patient has SUSPECTED Obstructive Sleep Apnea, and HAS received any narcotic , sedative or anesthesia administration during this stay. Category 3: Patient has SUSPECTED Obstructive Sleep Apnea and HAS NOT received narcotic, sedative or anesthesia administration during this stay. Category 4: Outpatient in Procedural Areas with known sleep apnea or who screen positive for High Risk via the STOP/BANG questionnaire. Exam Exam Vital Signs Vital Signs Date Time Temp Pulse Resp B/P Pulse Ox O2 Delivery O2 Flow Rate FiO2 11/02/16 09:31 82 16 98 Room Air 11/02/16 07:47 36.6 73 20 129/82 97 Room Air 11/02/16 06:15 104 11/02/16 03:15 39.7 63 22 127/86 99 Room Air General Appearance: Alert, Oriented X3, Cooperative, No Acute Distress HEENT/AIRWAY: MP 2 Lungs: Clear to Auscultation, Normal Air Movement Heart: Exam Unremarkable, Regular Rate/Rhythm, No Murmurs/Rubs/Gallops Meds/Labs/Diagnostics Admission Meds Current Medications Cefepime HCl/ Dextrose/Water (Maxipime Inj/ D5W Minibag Plus) 100 ml @ 25 mls/ hr Q8 IV Last administered on 11/02/16 08:10; Start 11/01/16 at 16:30 Quetiapine Fumarate (SEROquel) 12.5 mg HS PO Last administered on 11/01/16 21: 40; Start 11/01/16 at 21:00 Bedside Blood Glucose: 140 Labs Test 10/31/16 18:55 10/31/16 21:55 10/31/16 23:35 11/01/16 02:40 Erythrocyte Sedimentation Rate 22mm/hr (0-15) Prothrombin Time 12.7sec (8.1-12.5) Prothromb Time International Ratio 1.18ratio Troponin T < 0.010ug/L (0.0-0.011) Lipase 30U/L (13-60) Urine Color Yellow (YELLOW) Urine Appearance Clear (CLEAR,HAZY) Urine pH 5.0 (5.0-8.0) Urine Specific [place] 1.010 (1.003-1.035) Urine Protein Negativemg/dL (NEG,TRACE) Urine Glucose (UA) Negativemg/dL (NEGATIVE) Urine Ketones Negativemg/dL (NEGATIVE) Urine Occult Blood Negative (NEGATIVE) Urine Nitrite Negative (NEGATIVE) Urine Bilirubin Negative (NEGATIVE) Urine Urobilinogen Normalmg/dL (NORMAL) Urine Leukocyte Esterase Negative (NEGATIVE) Urine RBC 0-2/hpf (0-2) Urine WBC 0-5/hpf (0-5) Urine Epithelial Cells None/hpf (NONE-MOD) Urine Crystals None seen (NONE SEEN) Urine Bacteria Few/hpf (NONE-FEW) Urine Hyaline Casts None/lpf (NONE) Urine Granular Casts None seen (NONE SEEN) Urine Waxy Casts None seen (NONE SEEN) Urine Red Blood Cell Casts None seen (NONE SEEN) Urine White Blood Cell Casts None seen (NONE SEEN) Urine Mucus None seen (None Seen) Urine Trichomonas None seen (NONE SEEN) Urine Yeast None (NONE SEEN) Urinalysis Comment None Urine Culture Reflexed Not indicated Hepatitis A IgM Antibody Negative (Negative) Hepatitis B Surface Antigen Negative (Negative) Hepatitis B Core IgM Antibody Negative (Negative) Hepatitis C Antibody 0.1s/co ratio (0.0-0.9) Hepatitis C Comment Comment (.) HIV (1&2) Ag and Ab, 4th Generation Non reactive (Non Reactive) C-Reactive Protein 5.8mg/dL (0.0-0.5) Test 11/02/16 07:25 White Blood Count 12.4th/mm3 (3.8-10.1) Red Blood Count 3.74mil/mm3 (4.40-5.80) Hemoglobin 10.3g/dL (13.8-17.2) Hematocrit 32.1% (41.0-50.0) Mean Corpuscular Volume 85.8fL (81-100) Mean Corpuscular Hemoglobin 27.5pg (27.0-35.0) Mean Corpuscular Hemoglobin Concent 32.1% (32.0-37.0) Red Cell Distribution Width 13.5% (12.3-15.4) Platelet Count 206bil/L (150-400) Neutrophils (%) (Auto) 74.5% (40-74) Lymphocytes (%) (Auto) 17.8% (14-46) Monocytes (%) (Auto) 5.1% (4-12) Eosinophils (%) (Auto) 2.0% (0-5) Basophils (%) (Auto) 0.4% (0-3) Sodium Level 141mEq/L (134-144) Potassium Level 4.5mEq/L (3.5-5.2) Chloride Level 109mEq/L (97-108) Carbon Dioxide Level 20mmol/L (18-29) Blood Urea Nitrogen 12mg/dL (6-20) Creatinine 0.79mg/dL (0.76-1.27) Estimat Glomerular Filtration Rate 117mL/min (>59) Glucose Level 99mg/dL (60-99) Lactic Acid Level 0.7mmol/L (0.4-2.0) Calcium Level 8.8mg/dL (8.5-10.1) Phosphorus Level 3.2mg/dL (2.5-4.9) Magnesium Level 2.1mg/dL (1.6-2.6) Total Bilirubin 0.2mg/dL (0.0-1.2) Aspartate Amino Transf (AST/SGOT) 48U/L (0-50) Alanine Aminotransferase (ALT/SGPT) 73U/L (0-44) Alkaline Phosphatase 96U/L (25-150) Total Protein 6.1g/dL (6.4-8.4) Albumin 3.0g/dL (3.4-5.0) Procalcitonin 67.07ng/mL (0.00-0.08) Vancomycin Level Trough 15.9mcg/mL Plan Impression Patient chart reviewed, patient interviewed and anesthestic plan with risks, benefits, and alternatives discussed, and informed consent obtained. ASA Physical Status: ASA2 Mod Systemic Disease Anesthetic Plan: MAC Bene/Risks/Altern/Consents: Yes HP Complete Prior to Induction: Yes Winston Walsh MD Nov 02, 2016 09:54
--- NOTE | 2016-11-02 11:18 | PCM.PNMED ---
Subjective Date of Service Nov 02, 2016 Subjective pt had another febrile episode 39.7, had tylenol pt was agitated, restless, went outside of the hospital against instruction, with significant other noticed very drowsy this AM kept NPO for possible TAMMIE today all BCX ngtd, Exam Vital Signs Vital Sign - Last Date Time Temp Pulse Resp B/P Pulse Ox O2 Delivery O2 Flow Rate FiO2 11/02/16 11:00 73 22 128/82 99 Nasal Cannula 2.00 11/02/16 10:05 36.6 Intake and Output 11/01/16 11/01/16 11/02/16 Cumulative From/Thru 15:00 23:00 07:00 10/31/16 18:29 - 11/02/16 06:27 Intake Total 3889 ml 2193 ml 89301 ml Output Total 5000 ml 550 ml 5950 ml Balance -1111 ml 1643 ml 4173 ml Intake Oral 2160 ml 600 ml 2760 ml IV Total 1729 ml 1593 ml 7363 ml Output Urine Total 5000 ml 550 ml 5950 ml # Bowel Movements 0 0 IVs and Medications Medications Reviewed: Medications were reviewed in detail Lab and Diagnostics Result Diagram: 11/02/16 0725 11/02/16 0725 Microbiology Blood cultures 4 drawn and sent. X-Rays, CTs and MRIs PROCEDURE: US ABDOMEN, LIMITED IMPRESSION: Borderline hepatomegaly and steatosis. Correlation with liver function test suggested. Dictated by: Leandro Tsang M.D. on 11/01/2016 at 13:40 X-RAY CHEST ONE VIEW, PORTABLE ([id number]) IMPRESSION: No acute cardiopulmonary findings. Dictated by: Sophia Rutherford M.D. on 10/31/2016 at 19:12 Approved by: Sophia Rutherford M.D. on 10/31/2016 at 19:13 Cardiac Echo Impressions Interpretation Summary The study quality was technically difficult. The left ventricle is normal in size. The ejection fraction is estimated to be 60-65%.There appears to be mild hypokinesis of distal posterolateral wall. Paradoxical septal motion noted. The right ventricle is mildly dilated. The right ventricular systolic function is normal. The right ventricular systolic pressure is estimated at 40 mmHg assuming a right atrial pressure of 15 mm Hg. The IVC is dilated (diameter is greater than 2.1 cm) and it collapses less than 50% with a sniff. This suggests a high right atrial pressure of 15 mm Hg. No obvious vegetation seen, however if clinical suspicion for endocarditis is high, consider TAMMIE. Assessment & Plan Jose Alejandro Richards is a 36-year-old man with polysubstance abuse who presents to the ED complaining of shortness of breath that started after he injected methamphetamine and heroin into his right arm this morning. Admitted for sepsis thought to be secondary to bacteremia. acute, active Sepsis,POA, met SIRS+ on admission with temperature 39.6, respiratory rate 24, pulse 158, lactate 2.8. Source of infection was suspected due to transient bacteremia given the sudden onset of symptoms, but endocarditis is also a possibility given patient's statement that needle licking the the use of nonsterile reused cotton balls to prepare the needles for injection. Serial BCX 10/31,11/01 ngtd. MRSA swab/resp PCR all neg. Viral hep panel/HIV neg. TTE showed no obvious vegetation. pt clinically doesn't show any s/s of vertebral OM. -pt HD stable, but kep febrile. -continue vancomycin, appreciate ID Follow up -awaits final BCX, sent another set this AM given febrile episode -TAMMIE planned, although no bacteremia so far, Polysubstance abuse, POA, Last heroin injection at approximately one day prior to admission. Last methamphetamine injection was 2days prior to adm. it was suspected, pt likely did use illicit drug against instruction 11/01 -pt showed mild signs of opioid WD overnight, ordered ativan 1mg tid prn for agitation, would avoid long acting opioid if possible Elevated aminotransferases, POA, abd US showed epatomegaly and steatosis. GB was not assessed during exam. -pt still still symptomatic with mild RUQ tenderness, but LFTs close to normal limit -monitor sx, possibly get abd CT with hepatobiliary tract if this is more suspicious for fever source. chronic, stable, Questionable history of COPD, possibly in exacerbation, Patient reports worsening SOB and cough with marti phlegm, stable, Continue DuoNeb PRN Electrolyte derangements, present on admission, resolved. Magnesium 1.4 and phosphorus 1.2. Potassium phosphate and magnesium given. Tobacco use disorder, presents on admission, active. Nicotine patch 21 mg daily. History of rheumatoid arthritis, presume stable. Patient has not been treated for a decade. Follow up as outpatient. PRN Medications - Acetaminophen as needed for mild pain/fever/headache - Bowel regimen as needed - Antiemetic as needed dispo: likely prolonged until finding out fever source, GI Prophylaxis: Not indicated VTE Prophylaxis: Sub-Q Heparin (Unfractionated), SCDs Resuscitation Status: CPR: Attempt Resuscitation Time spent 35min Neo Hicks MD Nov 02, 2016 11:18 - Nicotine patch 21 mg daily. History of rheumatoid arthritis, presume stable. - Patient has not been treated for a decade. - Follow up as outpatient. - Patient does not have a PCP. PRN Medications - Acetaminophen as needed for mild pain/fever/headache - Bowel regimen as needed - Antiemetic as needed Patient is admitted under inpatient status with expected length of stay greater than 2 midnights due to severity of presenting symptoms, risk of adverse event, and complexity of treatment plan. GI Prophylaxis: Not indicated VTE Prophylaxis: Sub-Q Heparin (Unfractionated), SCDs Resuscitation Status: CPR: Attempt Resuscitation Time spent 35min Neo Hicks MD Nov 02, 2016 11:18
[2016-11-02] MEDS ORDERED: Propofol 10,000 mCg/mL 20 mL Inj ONE (11:27)
[2016-11-02] MEDS ORDERED: Ketamine 10 mg/mL 20 mL Inj ONE (11:27)
[2016-11-02] MEDS ORDERED: Ondansetron 2 mg/mL 2 mL Inj ONE (11:27)
--- NOTE | 2016-11-02 11:27 | NUR ---
[facility] TAMMIE PT WAS RECEIVED TO [facility] AT 1005 FOR TAMMIE WITH ANESTHESIA. PT WAS PREPPED AND PROCEDURE ACCOMPLISHED AND HE TOLERATED PROCEDURE WELL. SEE ANESTHESIA FLOW SHEET FOR DETAILS. PT TAKING ICE CHIPS AND IS AWAKE AT 1120 AND ABLE TO STAND AND TRANSFER TO /. REPORT CALLED TO RAMAN Gil RN AND PT AND HIS NURSING CARE WERE TRANSFERRED BACK TO ROOM 2007 AT 1129.
[2016-11-02] MEDS: LORazepam 1 mg Tablet PO PRN ×3 (12:32→22:14)
--- NOTE | 2016-11-02 13:59 | NUR ---
Withdrawal Pt pleasant and calm this morning. Went for TAMMIE at 1000. Upon return, pt alert but slightly lethargic from conscious sedation. Early afternoon, pt reports feeling anxious and mildly agitated, requested lorazepam. 1mg PO lorazepam administered, pt reports some relief. Pt also states he feels better today than yesterday, in regard to his withdrawal. Cooperative with cares. Uses urinal in bathroom, generally independent in room with gait steady, SBA post TAMMIE and lorazepam administration for safety. Denies pain thus far today. Uses call light to make needs known.
--- NOTE | 2016-11-02 14:53 | NUR ---
Social Work: Chemical Dependency/Multidisciplinary Rounds/Initial Assessment D: Pt discussed in am rounds. Pt is not medically stable for discharge. CD assessment order placed. Order acknowledged by [employer]. Concerns for patients CD use. [employer] met with the patient and s/o, Kenna, at bedside. Sw role explained, discharge planning checklist and contact information provided. Pt and s/o are currently homeless [facility]. Pt admits to daily IV heroin and meth use with heroin being primary drug of choice. Pt also has a history of ETOH use but has been sober from ETOH for approximately 1 year. Pt states that he is interested chintan referral for Suboxone and signed consent for [facility] for resources. Pt states that after discharge he might be going to [place] to stay with his dad. The patient is not current with Medicaid and is working with [facility] to apply for [employer]. [employer] has alerted CDP from [facility] who will see the patient today. REE placed on chart. [facility] is making the patient an appointment at the [facility] as pt states he would like a follow up appointment and that he does not have a PCP. A: Pt who is I at baseline. P: Pt who will either discharge back to [facility] versus back to [place] to live with his father. CDP to see the patient to complete CD assessment. RAQUEL Nazario Addendum: 11/02/16 at 1503 by AMIRA SMITH SS Amended: Links added.
--- NOTE | 2016-11-02 15:22 | NUR ---
Scheduled [facility] appointment for 11/08/16 hospital follow up check in at 215 for 230 appointment with . Updated ART GILDER
[2016-11-02] MEDS: Albuterol-Ipratropium 3 mL Inhalation Solution NEB PRN (17:03)
--- NOTE | 2016-11-02 17:43 | DRSVH ---
[facility] [address] [place] [address] Echocardiogram Report Name: MICHELE WONG Study Date: 11/02/2016 Height: 72 in Hospital Exam Location: [facility] Weight: 199 lb Gender: Male BSA: 2.1 m2 : 1980 Age: 36 yrs BP: 135/88 mmHg Reason For Study: ENDOCARDITIS Ordering Physician: VIRI MOREL Performed By: Ozzy Sweeney Interpretation Summary No vegatation seen on aortic, mitral, tricuspid and pulmonic valves. Procedure: Informed consent for Transesophageal Echocardiogram, and use of a contrast agent as needed, was obtained prior to the procedure. The patient was brought to the [facility] in a fasting state. An intravenous line was placed. A topical anesthetic agent was used for oropharangeal anesthesia. A bite block was inserted. Sedation was managed by anesthesiologist; see anesthesiology notes for details. A multifrequency, multiplane transesopheageal echocardiographic endoscope was inserted and manipulated in the standard fashion to achieve multiplane views. The transesophageal probe was passed without difficulty. A 2D transesophageal echocardiogram with spectral and color flow Doppler was performed. Limited views were obtained. The patient's vital signs, including blood pressure, heart rate, pulse oximetry and cardiac rhythm were monitored throughout the procedure and remained stable. The patient tolerated the procedure well without evidence of orophangeal or esophageal trauma. Comparison is made with the echocardiogram of 11/01/16. The patient was in normal sinus rhythm during the exam. There were no complications. Left Ventricle: The left ventricle is normal in size. There is normal left ventricular wall thickness. The left ventricular ejection fraction is normal. Right Ventricle: The right ventricle is normal in size and function. Atria: The interatrial septum is intact with no evidence for an atrial septal defect. Mitral Valve: The mitral valve is normal. There is trace mitral regurgitation. Aortic Valve: The aortic valve is trileaflet. The aortic valve opens well. No aortic regurgitation is present. Tricuspid Valve: The tricuspid valve is normal in structure and function. There is trace tricuspid regurgitation. Pulmonic Valve: The pulmonic valve leaflets are thin and pliable; valve motion is normal. There is no pulmonic valvular regurgitation. Pericardium/ Pleura: There is no pericardial effusion. Electronically signed by: Ceferino Joshi on Reading Physician:11/02/2016 05:42 PM
[2016-11-02] MEDS ORDERED: Furosemide 10 mg/mL 2 mL Inj IVPUSH ONE (17:45)
--- NOTE | 2016-11-02 18:11 | NUR ---
Respiratory/Withdrawal/BM Had one episode of SOB at approx 1700, lungs auscultated -- moderate decrease in bases, audible inspiratory and expiratory wheeze. Ordered neb treatment, notified MD (aline). Patient reported relief after neb treatment, still audible wheezes with decreased lung sounds although improved. Per MD, DC'd NS at 125 and admin 20mg lasix IV push once. Administered PO Lorazepam 1mg for agitation, patient states "Last night I was flopping around like a fish and pulled an IV out. I almost had to call my franci to come visit to me to hook me up but I didn't. I don't want to do that". Also discussed this with MD, will continue PO benzos for now, MD states if patient's agitation increases he will order IV medications. One episode of incontinent diarrhea this afternoon, patient states this happens to him during withdrawal. Stool PCR ordered, hat now in bathroom and instructed patient to press call light with BM to send to lab -- verbalized understanding.
[2016-11-03] MEDS: Cefepime Inj 2,000 MG in Dextrose 5% Minibag Plus 100 ML IV SCH ×3 (00:02→16:28)
[2016-11-03] MEDS: Vancomycin Inj 1,250 MG in 0.9% Sodium Chloride 250 ML IV SCH ×3 (00:02→16:28)
[2016-11-03] MEDS: Heparin 5,000 Unit/mL Inj SUBQ SCH ×4 (00:03→23:51)
[2016-11-03] MEDS: Sodium Chloride LOK Flush 10 mL Syringe IVFLUSH SCH ×3 (00:04→16:28)
[2016-11-03] MEDS ORDERED: diphenhydrAMINE 25 mg Capsule PO ONE (00:15)
--- NOTE | 2016-11-03 02:16 | NUR ---
Withdrawal Pt began to be agitated and restless just prior to HS medications. All PRN and scheduled medications given. Pt went for walk and had tele d/c'd. Pt requested Valium shortly after, provider notified and spoke with pt. Pt requested going home AMA but again spoke with charge loader and provider and decided to stay.
[2016-11-03 03:13] LABS: BASOPHILS % (AUTO) 0.4 % (0-3); EOSINOPHILS % (AUTO) 1.4 % (0-5); MONOCYTES % (AUTO) 6.2 % (4-12); Mean Corpuscular Volume 84.6 fL (81-100); Platelet Count 255 bil/L (150-400)
[2016-11-03 03:52] LABS: Magnesium 1.8 mg/dL (1.6-2.6); Phosphorus 4.1 mg/dL (2.5-4.9)
[2016-11-03 04:12] VITALS: BP 110/58; PULSE 57; RESP 20; O2SAT 98
[2016-11-03 07:59] VITALS: BP 130/73; PULSE 76; RESP 18; O2SAT 95
[2016-11-03] MEDS: Vancomycin Dose per Pharmacist XX SCH (08:27)
[2016-11-03] MEDS: LORazepam 1 mg Tablet PO PRN ×2 (08:27→17:27)
--- NOTE | 2016-11-03 10:52 | PROG NOTE ---
[address] [address] PROGRESS NOTE PATIENT: MICHELE WONG : 1980 MR#: [id number] ADMIT: 10/31/2016 JOB ID: [id number] DATE: 11/03/2016 INFECTIOUS DISEASE FOLLOW UP NOTE: REASON FOR FOLLOWUP: Sepsis of unknown site. INTERVAL HISTORY: Recall this is a 36-year-old IV drug user who licks the needles prior to injection and admitted with sepsis of unknown source. An extensive workup including many blood cultures, transthoracic and transesophageal echoes and a variety of imaging studies have been done without unraveling the source of his infection or any microbe. Today, the patient feels as if he is withdrawing from drugs and that he is having trouble sleeping and he feels tired, warm and generally unwell, but no focal complaints. No fevers. No chills. No sweats. No sore throat. No confusion or stiff neck. Minimal dry chronic cough. No shortness of breath. No nausea, vomiting, diarrhea or dysuria. PHYSICAL EXAMINATION: Reveals an afebrile gentleman, temperature 37.1, pulse 76, respiratory rate 18, blood pressure 130/73. He looks a bit uncomfortable but in no way toxic. His cheeks are flushed bilaterally. He is awake, alert, follows commands but looks lethargic. Neck: Supple. Lungs: Clear. Cardiac tones without any murmur. Abdomen: Soft and no longer tender in the right upper quadrant as he was the first day we evaluated this patient. No skin rashes noted and no obvious soft tissue abscess. LABORATORY STUDIES: White count has now declined to normal, it is 9900 today. Normal differential. Creatinine 0.98. ALT had been high to 123. It is now down by half to 55. His albumin is 3.1. Procalcitonin coming down by 50% a day. It has now reached 35. Urinalysis without white cells. Hepatitis serologies and HIV all negative. Many blood cultures, all negative. MRSA screen negative. Sputum negative. Respiratory viral PCR negative. Stool PCR was done and was negative. IMAGING: Abdominal ultrasound was nonfasting so I could not evaluate the gallbladder but the liver just showed some fatty liver and a chest x-ray was clear. Transthoracic and transesophageal echos are negative. IMPRESSION: This is a IV drug user who licks the needles with underlying rheumatoid arthritis who was admitted with profound leukocytosis and grossly elevated procalcitonin to over 100. We were concerned about endocarditis but 10 blood cultures or so were completely negative and a TAMMIE is normal which almost excludes that diagnosis. He is rapidly improving on a combination of vanco and cefepime which was chosen for broad-spectrum coverage from organisms that might arise from injecting with grossly contaminated needles. At this point, I am a little uncertain as to which direction to go with the patient. He is probably nearing a point where he could be discharged on oral antibiotics but I think it is probably reasonable to keep in the house a bit longer, if for no other reason that we do not know the source of this infection or its microbiology and the patient's compliance is probably going to be questionable. RECOMMENDATIONS: 1. Continue vanc and cefepime. 2. If he develops any more right upper quadrant pain, I would get a fasting ultrasound to get a better look at the gallbladder, but if his LFTs continue to fall and he can eat I think that is less likely. 3. Once the patient is ready for discharge, which I suspect will be the next day or two, I would send him out on a broad-spectrum combination such as Augmentin twice a day and levo once a day. This will provide broad-spectrum coverage for gram positives and gram negatives in this patient who could have literally almost anything causing a transient bacteremia and this severe infection. 4. Note that I will be out of town the next three days returning the morning of November 07. I can be reached by cell phone or text as needed during that time.
--- NOTE | 2016-11-03 13:58 | PCM.PNMED ---
Subjective Date of Service Nov 03, 2016 Subjective Overnight, patient was agitated and restless. He requested to have medications to help him with withdrawal like Methadone or Suboxone. He also requested to leave AMA but after talking to the night resident, he decided to stay. Vital signs remain stable. Afebrile. This morning, patient was seen lying on his bed sleeping. He states that he feels "crappy" and tired. He reports that he could not sleep last night and wants to go back to sleep now. He denies any chest pain, SOB, abdominal pain, nausea, or vomiting. Exam Vital Signs Vital Sign - Last Date Time Temp Pulse Resp B/P Pulse Ox O2 Delivery O2 Flow Rate FiO2 11/03/16 07:59 37.1 76 18 130/73 95 Room Air 11/02/16 11:00 2.00 Intake and Output 11/02/16 11/02/16 11/03/16 Cumulative From/Thru 15:00 23:00 07:00 10/31/16 18:29 - 11/03/16 06:12 Intake Total 400 ml 1961 ml 400 ml 52759 ml Output Total 550 ml 300 ml 6800 ml Balance 400 ml 1411 ml 100 ml 6084 ml Intake Oral 400 ml 400 ml 3560 ml IV Total 400 ml 1561 ml 9324 ml Output Urine Total 550 ml 300 ml 6800 ml # Voids 1 1 # Bowel Movements 1 1 Exam General: Patient is sleepy and appears a little uncomfortable but in no acute distress. HEENT: Normocephalic, atraumatic. External ears without defect. Pupils equal, round, and reactive to light and accommodation. Anicteric sclerae. Oropharynx free of erythema and cobble stoning with moist mucosa. Neck: Supple. No jugular venous distension. No bruits. No lymphadenopathy or thyromegaly. Cardiovascular: Regular rate and rhythm with no murmurs, rubs, or gallops appreciated Pulmonary: Mild rales at the bases but no wheezes noted. Normal respiratory effort with no use of accessory muscles. Abdomen: Bowel tones present. Soft, nondistended. Non tender, mild liver enlargement noted. No splenomegaly. Extremities: No clubbing, cyanosis, edema, or lymphadenopathy appreciated. Faint track alba on bilateral arms. Skin: Normal temperature, turgor, and texture; no rash, ulcers, or subcutaneous nodules appreciated. Neurological: patient refuses to follow commands, stating that he needs to sleep. Psychiatric: Appears anxious, uncooperative. IVs and Medications Medications Reviewed: Medications were reviewed in detail Lab and Diagnostics Result Diagram: 11/03/1629911/03/16299 Microbiology Blood cultures 4 drawn and sent. X-Rays, CTs and MRIs PROCEDURE: US ABDOMEN, LIMITED IMPRESSION: Borderline hepatomegaly and steatosis. Correlation with liver function test suggested. Dictated by: Leandro Tsang M.D. on 11/01/2016 at 13:40 X-RAY CHEST ONE VIEW, PORTABLE ([id number]) IMPRESSION: No acute cardiopulmonary findings. Dictated by: Sophia Rutherford M.D. on 10/31/2016 at 19:12 Approved by: Sophia Rutherford M.D. on 10/31/2016 at 19:13 Cardiac Echo Impressions Interpretation Summary The study quality was technically difficult. The left ventricle is normal in size. The ejection fraction is estimated to be 60-65%.There appears to be mild hypokinesis of distal posterolateral wall. Paradoxical septal motion noted. The right ventricle is mildly dilated. The right ventricular systolic function is normal. The right ventricular systolic pressure is estimated at 40 mmHg assuming a right atrial pressure of 15 mm Hg. The IVC is dilated (diameter is greater than 2.1 cm) and it collapses less than 50% with a sniff. This suggests a high right atrial pressure of 15 mm Hg. No obvious vegetation seen, however if clinical suspicion for endocarditis is high, consider TAMMIE. Assessment & Plan Jose Alejandro Richards is a 36-year-old man with polysubstance abuse who presents to the ED complaining of shortness of breath that started after he injected methamphetamine and heroin into his right arm this morning. Admitted for sepsis thought to be secondary to bacteremia. acute, active Sepsis, POA, resolved. - met SIRS+ on admission with temperature 39.6, respiratory rate 24, pulse 158, lactate 2.8. - Source of infection was suspected due to transient bacteremia given the sudden onset of symptoms and given patient's statement that needle licking the the use of nonsterile reused cotton balls to prepare the needles for injection. - Neither TTE or TAMMIE show any evidence of endocarditis. Patient clinically doesn 't show any s/s of vertebral osteomyelitis. - Serial BCX 10/31,11/01 ngtd. MRSA swab/resp PCR all neg. Viral hep panel/HIV neg. - awaits final BCX. - Procalcitonin and WBC trending down. Continue to monitor. - Vital signs stable. No fever in the last 24 hours. - continue vancomycin and Cefepime, appreciate ID input. - Will consider switching patient to PO Augmentin BID and Levaquin daily at discharge. - Follow clinically. Polysubstance abuse, POA, chronic. - Last heroin injection at approximately one day prior to admission. Last methamphetamine injection was 2days prior to adm. it was suspected, pt likely did use illicit drug against instruction 11/01 - pt showed mild signs of opioid withdrawal overnight, conitnue ativan 1mg tid prn for agitation, would avoid long acting opioid if possible. - Follow clinically. Elevated aminotransferases, POA, improved. - abd US showed hepatomegaly and steatosis. GB was not assessed during exam. - RUQ tenderness resolved and LFTs close to normal limit -monitor sx, possibly get abd CT with hepatobiliary tract if this is more suspicious for fever source. chronic, stable, Questionable history of COPD, possibly in exacerbation, improved. Patient reports worsening SOB and cough with marti phlegm, stable, Continue DuoNeb PRN Electrolyte derangements, present on admission, resolved. Magnesium 1.4 and phosphorus 1.2. Potassium phosphate and magnesium given. Tobacco use disorder, presents on admission, active. Nicotine patch 21 mg daily. History of rheumatoid arthritis, presume stable. Patient has not been treated for a decade. Follow up as outpatient. PRN Medications - Acetaminophen as needed for mild pain/fever/headache - Bowel regimen as needed - Antiemetic as needed dispo: likely home in 1-2 days. Pain Evaluation: Adequate Pain Control GI Prophylaxis: Not indicated VTE Prophylaxis: Sub-Q Heparin (Unfractionated), SCDs Resuscitation Status: CPR: Attempt Resuscitation Meng Bermudez DO Nov 03, 2016 13:58
[2016-11-03 16:00] VITALS: BP 124/83; PULSE 97; RESP 24; O2SAT 97
--- NOTE | 2016-11-03 16:32 | NUR ---
Social Work: Multidisciplinary Rounds. Pt discussed in am rounds. Pt is not medically stable for discharge at time time. Sw status remains unchanged at this time. CDP is following the patient and assisting with resource acquisition for treatment. Pt is undecided if he is going to stay in the area or go home to [place] with his dad. ANTIQUER to continue to follow RAQUEL Nazario
--- NOTE | 2016-11-03 16:45 | NUR ---
Heparin Pt has been sound asleep both this morning and this afternoon when med pass is due. Pt refused both 0830 and 1630 dose of Heparin and asked me to leave and just wants to sleep. Will inform .
[2016-11-03 21:08] VITALS: PULSE 111; RESP 18; O2SAT 95
[2016-11-03] MEDS: Albuterol-Ipratropium 3 mL Inhalation Solution NEB PRN (21:08)
[2016-11-03 21:11] VITALS: BP 122/85; PULSE 108; RESP 20; O2SAT 95
[2016-11-03 21:50] VITALS: BP 115/72; PULSE 106; RESP 20; O2SAT 94
--- NOTE | 2016-11-03 21:52 | NUR ---
Transferred from [facility] Report received from Sharno Man. pt [facility] approximately at 2140 via wheelchair. pt A&O X3. ambulatory, IV was saline locked; restarted IV ABX. Pt c/o joint pain. he was given PO Tylenol before transferred to [facility]. Pt is on RA with sat 93%. VSS. Oriented pt to room and call light. will continue to monitor and provide care.
--- NOTE | 2016-11-03 22:38 | NUR ---
Transfer/Pain/IV Pt transferred to [facility] room 246 at around 2130, report to MOC RN. Vitals stable, pt received neb treatment prior to transfer for some wheezing. All belongings/chart/meds transferred w/ pt, Pt taken to [facility] via wheelchair w/ CNAs. Pt c/o 11/30 generalized joint pain, states he had not had this for months, given Tylenol just before transfer, MOC RN aware. Right PIV infiltrated and restarted by CCU RN prior to pt transfer.
[2016-11-04] MEDS: Vancomycin Inj 1,250 MG in 0.9% Sodium Chloride 250 ML IV SCH ×2 (00:16→08:49)
[2016-11-04] MEDS: Sodium Chloride LOK Flush 10 mL Syringe IVFLUSH SCH ×2 (00:30→08:47)
[2016-11-04] MEDS: Cefepime Inj 2,000 MG in Dextrose 5% Minibag Plus 100 ML IV SCH ×2 (01:50→10:27)
[2016-11-04] MEDS: LORazepam 1 mg Tablet PO PRN ×2 (01:50→10:32)
--- NOTE | 2016-11-04 05:12 | NUR ---
Diarrhea/Pain/Activity pt reported multiple "sudden and uncontrolled" diarrhea during this shift. Stool PCR was done on the and all negative, but he is on IV ABX. paged HS hospitalist and received PO Imodium. Administered Imodium. pt reported joint pain relived to 3/10 after Tylenol Administered by PCC RN just before transfer. pt reported joint pain still there, but it's tolerable. will transfer to day shift RN. pt has been ambulating to the bathroom independently. girlfriend in room during this night. will continue to monitor and provide care.
[2016-11-04 06:01] VITALS: BP 115/74; PULSE 62; RESP 18; O2SAT 97
[2016-11-04] MEDS ORDERED: Vancomycin Serum Trough XX ONE (07:30)
[2016-11-04 07:34] LABS: BASOPHILS % (AUTO) 0.4 % (0-3); EOSINOPHILS % (AUTO) 1.7 % (0-5); MONOCYTES % (AUTO) 5.1 % (4-12); Mean Corpuscular Hemoglobin 27.4 pg (27.0-35.0); Mean Corpuscular Volume 82.3 fL (81-100); NEUTROPHILS % (AUTO) 69.9 % (40-74); Platelet Count 287 bil/L (150-400)
[2016-11-04] MEDS: Vancomycin Dose per Pharmacist XX SCH (08:30)
[2016-11-04 08:40] VITALS: BP 125/85; PULSE 96; RESP 18; O2SAT 97
[2016-11-04] MEDS: Heparin 5,000 Unit/mL Inj SUBQ SCH (08:50)
--- NOTE | 2016-11-04 11:18 | NUR ---
Diarrhea So far this am pt reporting loose stool x3. Text paged MD requesting medication to help this at 1100. Awaiting orders.
--- NOTE | 2016-11-04 11:35 | PCM.PHAPRO ---
Progress Date of Service: Nov 04, 2016 Shortness of breath VANCOMYCIN MANAGEMENT 36YO M with sepsis and history of IVDA WBC=9.6, Lact=1.2, Procal=12, afebrile Scr=0.78, USC=166 Vancomycin trough=13.5 Goal 15-20 for this patient. MRSA PCR negative Pt also on Cefepime extended infusion. P\ Pt subtherapeutic for vanco goal 15-20 Will increase Vancomycin 1500mg IV Q8H with first dose at 11/04 1630 and check another level before the 4th dose 11/05 1600 Will also check serum creatinine. Gustavo Millan [facility] Nov 04, 2016 11:35
--- NOTE | 2016-11-04 14:18 | NUR ---
Pt reported Mame, from [facility], was assessing pt. He reported to her that he used while here in the hospital. MD in room and pt also reported it to him also. Reported this to security and nursing ornamental ironworking supervisor. Plan to move pt to room with a window, search items [place] no visitors GF to leave belongings at desk and no overnight stay.
[2016-11-04] MEDS ORDERED: Buprenorphine 2 mg SL Tablet SL SCH (14:30)
--- NOTE | 2016-11-04 16:14 | NUR ---
Discharge AMA 1530 Reviewed plan of care with patient who understood and was cooperative. When reviewed that the Girlfriend was unable to stay night pt reported then I will have to discharge. I can't leave her out on the streets alone. Reported this to MD who stated will need to leave AMA as not medically ready. Notified patient who had already gotten dress. Removed IV, tip intact. Returned all of his and her belongings. Pt ambulated indep off unit. At 1415 staff notified this RN that patient seen ambulating back from the unit. pt had been notified earlier in the shift that he could ambulate around the unit, but not off. Patient stated understanding.
[2016-11-04] MEDS ORDERED: Vancomycin Inj 1,500 MG in 0.9% Sodium Chloride 500 ML IV SCH (16:30)
--- NOTE | 2016-11-04 16:35 | PCM.DC.MED ---
Discharge Summary Date of Service Nov 04, 2016 Dates of Hospitalization Date of Hospital Admission Oct 31, 2016 at 21:00 Date of Discharge: Nov 04, 2016 Providers: Admitting Physician: David Small MD Primary Care Physician: John Attending Physician: Manjinder Del Rosario Diagnosis at Time of Discharge Diagnosis at Time of Discharge # Patient left AMA # Acute Sepsis, POA, resolved. - met SIRS+ on admission with temperature 39.6, respiratory rate 24, pulse 158, lactate 2.8. - Source of infection was suspected due to transient bacteremia # Polysubstance abuse, POA, chronic. # Elevated aminotransferases, POA, improved. # Questionable history of COPD, possibly in exacerbation, improved. # Electrolyte derangements, present on admission, resolved. # Tobacco use disorder, presents on admission, active. Procedures XRay, CTs & MRIs PROCEDURE: US ABDOMEN, LIMITED IMPRESSION: Borderline hepatomegaly and steatosis. Correlation with liver function test suggested. Dictated by: Leandro Tsang M.D. on 11/01/2016 at 13:40 X-RAY CHEST ONE VIEW, PORTABLE ([id number]) IMPRESSION: No acute cardiopulmonary findings. Dictated by: Sophia Rutherford M.D. on 10/31/2016 at 19:12 Approved by: Sophia Rutherford M.D. on 10/31/2016 at 19:13 Cardiac Echo Impression Interpretation Summary The study quality was technically difficult. The left ventricle is normal in size. The ejection fraction is estimated to be 60-65%.There appears to be mild hypokinesis of distal posterolateral wall. Paradoxical septal motion noted. The right ventricle is mildly dilated. The right ventricular systolic function is normal. The right ventricular systolic pressure is estimated at 40 mmHg assuming a right atrial pressure of 15 mm Hg. The IVC is dilated (diameter is greater than 2.1 cm) and it collapses less than 50% with a sniff. This suggests a high right atrial pressure of 15 mm Hg. No obvious vegetation seen, however if clinical suspicion for endocarditis is high, consider TAMMIE. Brief History As noted in H&P by Dr. Hewitt: Jose Alejandro Richards is a 36-year-old man with polysubstance abuse who presents to the ED complaining of shortness of breath that started after he injected methamphetamine and heroin into his right arm this morning. Patient notes that he has felt short of breath and has had a productive cough for the past 6 months that has progressively worsened. The reason for his presentation today is that his shortness of breath is accompanied with sensation of his heart racing along with fever and sweats. Patient thought this may be due to withdrawing and took an additional hit of heroin just prior to arrival at approximately 1600. Patient has been using heroin and methamphetamine for the past year. He states he only injects in his arms bilaterally. He has not noticed any swelling or erythema surrounding the injection sites. He states he does not share needles but he does lick his needles. He denies any other rash or skin findings. Prior to this he struggled with alcohol abuse but has been sober for approximately one year. He also uses marijuana through inhalation route occasionally. He denies any sick contacts. He denies TB, hepatitis C, or HIV and states he was tested when he was at a rehabilitation center over a year ago. He was tested more recently for TB when he was incarcerated approximately 6 months ago. He denies any nausea, vomiting, diarrhea, abdominal pain, constipation, headache, visual changes, dizziness, or lightheadedness. On presentation to the ED vitals were temperature 39.6, pulse 158, respiratory rate 24 saturating 93% on room air, blood pressure 100/46. Initial labs revealed WBC of 4.2 with 93.8% neutrophils, ESR 22, lactic acid 2.8, AST 248, ALT 100, pro-calcitonin 25.61, and negative troponin. In the emergency department patient received vancomycin and ceftriaxone for suspected bacteremia. Hospital Course On 11/04/16 I saw the patient for the first time. He was complaining of diarrhea and symptoms of withdrawal. Discussed patient's case with Dr. Mares and per recommendation plan was to start the patient on Suboxone during this hospital and further plan followup at the clinic perhaps on Sunday or Sunday. I also informed patient that I was planning to continue with IV antibiotics for another 2-3 days as inpatient. Patient seemed to be agreeable with the plan. Later the same day patient was informed by the nursing staff that he was being moved to a room with windows and that he could not have visitors (including his girlfriend) stay over night. Patient's girlfriend claimed she had no where to stay. Later on I was informed by the nursing staff that the patient had decided to leave AMA. The remainder of hospital course is as detailed in the progress note from by Dr. Bermudez and cosigned by Dr. Hicks: acute, active Sepsis, POA, resolved. - met SIRS+ on admission with temperature 39.6, respiratory rate 24, pulse 158, lactate 2.8. - Source of infection was suspected due to transient bacteremia given the sudden onset of symptoms and given patient's statement that needle licking the the use of nonsterile reused cotton balls to prepare the needles for injection. - Neither TTE or TAMMIE show any evidence of endocarditis. Patient clinically doesn 't show any s/s of vertebral osteomyelitis. - Serial BCX 10/31,11/01 ngtd. MRSA swab/resp PCR all neg. Viral hep panel/HIV neg. - awaits final BCX. - Procalcitonin and WBC trending down. Continue to monitor. - Vital signs stable. No fever in the last 24 hours. - continue vancomycin and Cefepime, appreciate ID input. - Will consider switching patient to PO Augmentin BID and Levaquin daily at discharge. - Follow clinically. Polysubstance abuse, POA, chronic. - Last heroin injection at approximately one day prior to admission. Last methamphetamine injection was 2days prior to adm. it was suspected, pt likely did use illicit drug against instruction 11/01 - pt showed mild signs of opioid withdrawal overnight, conitnue ativan 1mg tid prn for agitation, would avoid long acting opioid if possible. - Follow clinically. Elevated aminotransferases, POA, improved. - abd US showed hepatomegaly and steatosis. GB was not assessed during exam. - RUQ tenderness resolved and LFTs close to normal limit -monitor sx, possibly get abd CT with hepatobiliary tract if this is more suspicious for fever source. chronic, stable, Questionable history of COPD, possibly in exacerbation, improved. Patient reports worsening SOB and cough with marti phlegm, stable, Continue DuoNeb PRN Electrolyte derangements, present on admission, resolved. Magnesium 1.4 and phosphorus 1.2. Potassium phosphate and magnesium given. Tobacco use disorder, presents on admission, active. Nicotine patch 21 mg daily. History of rheumatoid arthritis, presume stable. Patient has not been treated for a decade. Follow up as outpatient. Exam Vital Signs (Last) Date Time Temp Pulse Resp B/P Pulse Ox O2 Delivery O2 Flow Rate FiO2 7/15/17 08:40 37.0 96 18 125/85 97 Room Air 11/02/16 11:00 2.00 Exam Lungs: CTA bilat CV: RRR Test 10/31/16 18:55 10/31/16 21:55 10/31/16 23:35 11/01/16 02:40 Erythrocyte Sedimentation Rate 22mm/hr (0-15) Prothrombin Time 12.7sec (8.1-12.5) Prothromb Time International Ratio 1.18ratio Troponin T < 0.010ug/L (0.0-0.011) Lipase 30U/L (13-60) Urine Color Yellow (YELLOW) Urine Appearance Clear (CLEAR,HAZY) Urine pH 5.0 (5.0-8.0) Urine Specific [place] 1.010 (1.003-1.035) Urine Protein Negativemg/dL (NEG,TRACE) Urine Glucose (UA) Negativemg/dL (NEGATIVE) Urine Ketones Negativemg/dL (NEGATIVE) Urine Occult Blood Negative (NEGATIVE) Urine Nitrite Negative (NEGATIVE) Urine Bilirubin Negative (NEGATIVE) Urine Urobilinogen Normalmg/dL (NORMAL) Urine Leukocyte Esterase Negative (NEGATIVE) Urine RBC 0-2/hpf (0-2) Urine WBC 0-5/hpf (0-5) Urine Epithelial Cells None/hpf (NONE-MOD) Urine Crystals None seen (NONE SEEN) Urine Bacteria Few/hpf (NONE-FEW) Urine Hyaline Casts None/lpf (NONE) Urine Granular Casts None seen (NONE SEEN) Urine Waxy Casts None seen (NONE SEEN) Urine Red Blood Cell Casts None seen (NONE SEEN) Urine White Blood Cell Casts None seen (NONE SEEN) Urine Mucus None seen (None Seen) Urine Trichomonas None seen (NONE SEEN) Urine Yeast None (NONE SEEN) Urinalysis Comment None Urine Culture Reflexed Not indicated Hepatitis A IgM Antibody Negative (Negative) Hepatitis B Surface Antigen Negative (Negative) Hepatitis B Core IgM Antibody Negative (Negative) Hepatitis C Antibody 0.1s/co ratio (0.0-0.9) Hepatitis C Comment Comment (.) HIV (1&2) Ag and Ab, 4th Generation Non reactive (Non Reactive) C-Reactive Protein 5.8mg/dL (0.0-0.5) Test 11/03/16 03:00 11/04/16 07:10 Phosphorus Level 4.1mg/dL (2.5-4.9) White Blood Count 9.6th/mm3 (3.8-10.1) Red Blood Count 4.86mil/mm3 (4.40-5.80) Hemoglobin 13.3g/dL (13.8-17.2) Hematocrit 40.0% (41.0-50.0) Mean Corpuscular Volume 82.3fL (81-100) Mean Corpuscular Hemoglobin 27.4pg (27.0-35.0) Mean Corpuscular Hemoglobin Concent 33.3% (32.0-37.0) Red Cell Distribution Width 13.2% (12.3-15.4) Platelet Count 287bil/L (150-400) Neutrophils (%) (Auto) 69.9% (40-74) Lymphocytes (%) (Auto) 22.5% (14-46) Monocytes (%) (Auto) 5.1% (4-12) Eosinophils (%) (Auto) 1.7% (0-5) Basophils (%) (Auto) 0.4% (0-3) Sodium Level 139mEq/L (134-144) Potassium Level 4.3mEq/L (3.5-5.2) Chloride Level 104mEq/L (97-108) Carbon Dioxide Level 20mmol/L (18-29) Blood Urea Nitrogen 10mg/dL (6-20) Creatinine 0.78mg/dL (0.76-1.27) Estimat Glomerular Filtration Rate 118mL/min (>59) Glucose Level 187mg/dL (60-99) Lactic Acid Level 1.2mmol/L (0.4-2.0) Calcium Level 9.3mg/dL (8.5-10.1) Magnesium Level 2.0mg/dL (1.6-2.6) Total Bilirubin 0.2mg/dL (0.0-1.2) Aspartate Amino Transf (AST/SGOT) 33U/L (0-50) Alanine Aminotransferase (ALT/SGPT) 63U/L (0-44) Alkaline Phosphatase 100U/L (25-150) Total Protein 7.2g/dL (6.4-8.4) Albumin 3.7g/dL (3.4-5.0) Procalcitonin 12.00ng/mL (0.00-0.08) Vancomycin Level Trough 13.5mcg/mL Microbiology Results Blood cultures 4 drawn and sent. Discharge Medications No Active Prescriptions or Reported Meds Followup Plan Disposition: left AMA Time spent 40 min Manjinder Del Rosario Nov 04, 2016 16:35
[2016-11-05] MEDS ORDERED: Vancomycin Serum Trough XX ONE (16:00)
== END 2016-11-04 15:30 | disposition left against medical advice (07) | DRG 872 ==
LOC: EDBD 18:32 → SED 18:32 → PCC 21:00 → MOC 11-03 21:45
PROVIDERS: ADMIT Internal Medicine; ATTEND Internal Medicine
PROC: B24BZZ4 Ultrasonography of Heart with Aorta, Transesophageal (ICD-10-PCS; principal; 2016-11-02)
DX: A41.9 Sepsis, unspecified organism (principal); E88.89 Other specified metabolic disorders; F11.23 Opioid dependence with withdrawal; R07.9 Chest pain, unspecified; F15.10 Other stimulant abuse, uncomplicated; J44.9 Chronic obstructive pulmonary disease, unspecified; F17.210 Nicotine dependence, cigarettes, uncomplicated; F10.21 Alcohol dependence, in remission; E86.0 Dehydration; R10.11 Right upper quadrant pain